=== PATIENT | male | born 1950 ===

== ENCOUNTER 2017-06-01 13:36 | Inpatient (IN) | payer BC, MEDICARE ==
[2017-06-01 13:51] VITALS: BMI 30.5
[2017-06-01 14:32] LABS: BASO # 0.07 K/mm3 (0.0-2.0); BASO % 2.9 % (0.0-3.0); EOS % 1.3 % (1.5-5.0); GRAN # 1.08 (1.4-6.5); GRAN % 45.2 % (50.0-68.0); LYMPH # 0.5 (1.2-3.4); LYMPH % 22.6 % (22.0-35.0); MEAN CELL VOLUME 110.8 fl (80.0-105.0); MEAN CORPUSCULAR HEMOGLOBIN 35.5 pg (25.0-35.0); MEAN CORPUSCULAR HGB CONC 32.1 g/dl (31.0-37.0); MEAN PLATELET VOLUME 9.6 fl (7.0-11.0); MONO # 0.7 (0.1-0.6); PLATELET COUNT 150 10^3/uL (120.0-450.0); RED CELL DISTRIBUTION WIDTH 21.4 % (11.5-14.5)
[2017-06-01 14:39] LABS: RETIC% 24.31 % (0.5-1.5)
[2017-06-01 14:42] LABS: HEMATOCRIT 18.4 % (42.0-52.0); WHITE BLOOD COUNT 2.4 10^3/ul (4.5-11.0)
[2017-06-01 14:45] LABS: INR 1.27 (0.93-1.08); PARTIAL THROMBOPLASTIN TIME 27.2 Seconds (25.1-36.5)
[2017-06-01 14:46] LABS: ALB/GLOB RATIO 1.2 (1.1-1.8); ALKALINE PHOSPHATASE 56 U/L (38-126); ALT/SGPT 33 U/L (7-56); AST/SGOT 42 U/L (17-59); BILIRUBIN,DIRECT 0.8 mg/dL (0.0-0.4); BILIRUBIN,TOTAL 3.8 mg/dL (0.2-1.3); BLOOD UREA NITROGEN 19 mg/dL (7-21); CALCIUM 9.2 mg/dL (8.4-10.5); CARBON DIOXIDE 23 mmol/L (21-33); CHLORIDE 105 mmol/L (98-107); GFR AFRICAN-AMERICAN > 60; GLUCOSE,RANDOM 140 mg/dL (70-110); LIPASE 57 U/L (23-300); POTASSIUM 3.7 mmol/L (3.6-5.0); SODIUM 140 mmol/L (132-148); TOTAL PROTEIN 8.5 g/dL (5.8-8.3)
[2017-06-01 14:56] LABS: TROPONIN I < 0.01 ng/mL
--- NOTE | 2017-06-01 14:58 | ED PDOC ---
Arrival/HPI - General Chief Complaint: Abnormal Labs Time Seen by Provider: 06/01/17 13:42 Historian: Patient, Family (son) - History of Present Illness Narrative History of Present Illness (Text): 06/01/17 14:02 A 66 year old male, whose past medical history includes hypertension, presents to the emergency department after being sent in by Dr. Leach for "low blood count." The patient reports for the last few months he has been feeling weak and short of breath on exertion. He states for the last 4 days he has been feeling worse and nearly passed out 4 days ago. He stated he felt light headed with hot flashes. Today the patient had the same symptoms. He notes when he is relaxed and sitting down he feels perfectly fine. The patient currently complains of shortness of breath of exertion and mild nausea; he denies any headaches, chest pain, abdominal pain, shortness of breath while resting, vomiting, diarrhea, hematuria, dysuria, or any other complaints at this time. PMD: Dr. Leach Time/Duration: < week (worsening over the last 4 days), > month Symptom Course: Worsening Activities at Onset: Other (exertion ) Context: Walking, Exertion, Home Past Medical History - Provider Review Nursing Documentation Reviewed: Yes - Infectious Disease Hx of Infectious Diseases: None - Cardiac Hx Hypertension: Yes - Psychiatric Hx Substance Use: No - Anesthesia Hx Anesthesia: No Family/Social History - Physician Review Nursing Documentation Reviewed: Yes Family/Social History: No Known Family HX Smoking Status: Never Smoked Hx Alcohol Use: No Hx Substance Use: No Allergies/Home Meds Allergies/Adverse Reactions: Allergies No Known Allergies Allergy (Verified 06/01/17 13:50) Home Medications: Home Meds Medication Instructions Recorded Confirmed Ergocalciferol [Drisdol 50,000 1 cap PO Q7D 06/01/17 06/01/17 Intl Units Cap] diltiaZEM CD [Cardizem CD] 1 tab PO DAILY 06/01/17 06/01/17 Review of Systems - Physician Review All systems were reviewed & negative as marked: Yes - Review of Systems Constitutional: Fatigue. absent: Fevers Respiratory: SOB Cardiovascular: COSTA, Other (near syncope). absent: Chest Pain Gastrointestinal: Nausea (mild). absent: Abdominal Pain, Diarrhea, Vomiting Genitourinary Male: absent: Dysuria, Hematuria Neurological: Dizziness Physical Exam Vital Signs Reviewed: Yes Vital Signs Temp Pulse Resp BP Pulse Ox 06/01/17 15:03 86 18 132/69 99 06/01/17 13:56 98.7 F 92 H 18 134/71 99 Temperature: Afebrile Blood Pressure: Normal Pulse: Regular Respiratory Rate: Normal Appearance: Positive for: Well-Appearing, Non-Toxic, Comfortable Pain Distress: None Mental Status: Positive for: Alert and Oriented X 3 - Systems Exam Head: Present: Atraumatic, Normocephalic Pupils: Present: PERRL Conjunctiva: Present: Other (conjunctival pallor) Mouth: Present: Moist Mucous Membranes, Other (oral mucosal pallor) Pharnyx: Present: Normal. No: ERYTHEMA, EXUDATE Neck: Present: Normal Range of Motion Respiratory/Chest: Present: Clear to Auscultation, Good Air Exchange. No: Respiratory Distress, Accessory Muscle Use Cardiovascular: Present: Regular Rate and Rhythm, Normal S1, S2. No: Murmurs Abdomen: Present: Normal Bowel Sounds. No: Tenderness, Distention, Peritoneal Signs Back: Present: Normal Inspection Upper Extremity: Present: Normal Inspection. No: Cyanosis, Edema Lower Extremity: Present: Normal Inspection. No: Edema Neurological: Present: GCS=15, CN II-XII Intact, Speech Normal Skin: Present: Warm, Dry, Normal Color. No: Rashes Psychiatric: Present: Alert, Oriented x 3, Normal Insight, Normal Concentration Medical Decision Making ED Course and Treatment: 06/01/17 14:10 Impression: A 66 year old male with generalized weakness Plan: -- EKG -- Chest X-ray -- Labs -- Urinalysis -- Reassess and disposition Progress Notes: 06/01/17 15:13 Patient with Hgb of 5.9 with low WBC and normal platelet count. Other labs are suggestive of hemolysis. Patient consented for blood transfusion; consent signed. Dr. Leach had already discussed the case with Dr. Parsons for consult. Will start transfusion and admit for further workup and treatment. Case discussed with Dr. Cardenas for admission to his service. - Lab Interpretations Lab Results: 06/01/17 14:06 06/01/17 14:06 Lab Results 06/01/17 14:06: Blood Type Pending, Antibody Screen Pending, BBK History Checked No verified bt 06/01/17 14:06: Iron 211 H, TIBC 293.4, % Saturation 72 H 06/01/17 14:06: PT 13.9 H, INR 1.27 H, APTT 27.2 06/01/17 14:06: Sodium 140, Potassium 3.7, Chloride 105, Carbon Dioxide 23, Anion Gap 16, BUN 19, Creatinine 1.3, Est GFR ( Amer) > 60, Est GFR (Non- Af Amer) 55, Random Glucose 140 H, Calcium 9.2, Magnesium 2.0, Total Bilirubin 3.8 H, Direct Bilirubin 0.8 H, AST 42, ALT 33, Alkaline Phosphatase 56, Lactate Dehydrogenase 1553 H, Total Creatine Kinase 59, Troponin I < 0.01, NT-Pro-B Natriuret Pep 452 H, Total Protein 8.5 H, Albumin 4.6, Globulin 3.8, Albumin/ Globulin Ratio 1.2, Lipase 57, Vitamin B12 Pending, Folate Pending 06/01/17 14:06: WBC 2.4 L*, RBC 1.66 L, Hgb 5.9 L*, Hct 18.4 L*, MCV 110.8 H, MCH 35.5 H, MCHC 32.1, RDW 21.4 H, Plt Count 150, MPV 9.6, Gran % 45.2 L, Lymph % (Auto) 22.6, [place] % (Auto) 28.0 H, Eos % (Auto) 1.3 L, Baso % (Auto) 2.9, Gran # 1.08 L, Lymph # 0.5 L, [place] # 0.7 H, Eos # 0.0, Baso # 0.07, Neutrophils % (Manual) Pending, Lymphocytes % (Manual) Pending, Monocytes % (Manual) Pending , Retic Count 24.31 H* - RAD Interpretation Narrative RAD Interpretations (Text): 06/01/17 15:18 no active disease. Radiology Orders: 06/01/17 13:58 CHEST TWO VIEWS (PA/LAT) [RAD] Stat Editor [employer]: Radiologist - EKG Interpretation EKG Interpretation (Text): 06/01/17 15:19 NSR @ 91; normal intervals; normal axis; less than 1/[address] dep V4-V6. Interpreted by ED Physician: Yes Type: 12 lead EKG Comparison: No previous EKG avail. - Scribe Statement The provider has reviewed the documentation as recorded by the Scribe [employer] Provider Scribe Attestation: All medical record entries made by the Scribe were at my direction and personally dictated by me. I have reviewed the chart and agree that the record accurately reflects my personal performance of the history, physical exam, medical decision making, and the department course for this patient. I have also personally directed, reviewed, and agree with the discharge instructions and disposition. Disposition/Present on Arrival - Present on Arrival Any Indicators Present on Arrival: No History of DVT/PE: No History of Uncontrolled Diabetes: No Urinary Catheter: No History of Decub. Ulcer: No History Surgical Site Infection Following: None - Disposition Have Diagnosis and Disposition been Completed?: Yes Diagnosis: Hemolytic anemia Disposition: HOSPITALIZED Disposition Time: 15:00 Patient Plan: Admission Condition: FAIR Referrals: Dwayne Leach MD [Primary Care Provider] - Follow up with primary Forms: [employer] (Polish)
--- NOTE | 2017-06-01 15:15 | RAD ---
HISTORY: sob; COSTA COMPARISON: No prior. TECHNIQUE: Chest PA and lateral FINDINGS: LUNGS: No active pulmonary disease. PLEURA: No significant pleural effusion identified. No pneumothorax apparent. CARDIOVASCULAR: Normal. OSSEOUS STRUCTURES: No significant abnormalities. VISUALIZED UPPER ABDOMEN: Normal. OTHER FINDINGS: None. IMPRESSION: No active disease.
[2017-06-01 15:18] LABS: BAND 9 % (0-2); EOSINOPHIL 4 % (0.0-3.0); METAMYELOCYTE 3 %; NEUTROPHIL 47 % (50.0-70.0)
[2017-06-01 15:19] LABS: ANISOCYTOSIS 1+; HYPOCHROMIA SLIGHT; MICROCYTOSIS 1+; POIKILOCYTOSIS SLIGHT; POLYCHROMASIA 1+
[2017-06-01 15:20] LABS: LARGE PLATELETS PRESENT; PLATELET ESTIMATE NORMAL (NORMAL)
[2017-06-01 16:37] LABS: URINE BILIRUBIN NEGATIVE (NEGATIVE); URINE BLOOD TRACE-INTACT (NEGATIVE); URINE GLUCOSE (UA) NEGATIVE (NEGATIVE); URINE KETONE NEGATIVE (NEGATIVE); URINE LEUKOCYTE ESTERASE NEGATIVE Leu/uL (NEGATIVE); URINE PROTEIN NEGATIVE mg/dL (<30 mg/dL)
[2017-06-01 16:38] LABS: URINE APPEARANCE CLEAR (CLEAR); URINE COLOR YELLOW (YELLOW)
[2017-06-01 16:45] LABS: URINE BACTERIA FEW (NEG); URINE WBC 0 - 2 /hpf (0-6)
[2017-06-01] MEDS ORDERED: methylPREDNISolone 100 MG in Sodium Chloride 0.9% 100 ML IVPB STA (17:50)
[2017-06-01] MEDS ORDERED: Tuberculin 5 Units/0.1 ml Inj ID PRN (17:56)
[2017-06-01 18:32] LABS: MEAN CELL VOLUME 111.4 fl (80.0-105.0); MEAN CORPUSCULAR HEMOGLOBIN 35.6 pg (25.0-35.0); MEAN CORPUSCULAR HGB CONC 31.9 g/dl (31.0-37.0); MEAN PLATELET VOLUME 9.5 fl (7.0-11.0); RED CELL DISTRIBUTION WIDTH 21.6 % (11.5-14.5)
[2017-06-01 18:42] LABS: WHITE BLOOD COUNT 2.3 10^3/ul (4.5-11.0)
[2017-06-01 18:43] LABS: HEMATOCRIT 16.6 % (42.0-52.0)
[2017-06-01] MEDS: Pantoprazole 40 mg EC Tab PO SCH (18:46)
--- NOTE | 2017-06-01 19:47 | CARD ---
APPROVED REPORT EKG Measurement Heart [id number] <Conclusion> Normal sinus rhythm Possible Inferior infarct, age undetermined Abnormal ECG
[2017-06-01] MEDS ORDERED: Influenza Vaccine 60 mcg/0.5 mL SYR (4YR UP) IM ONE (20:11)
[2017-06-01] MEDS ORDERED: Pneumococcal 23-Valent Vaccine IM ONE (20:11)
[2017-06-02] MEDS: methylPREDNISolone 100 MG in Sodium Chloride 0.9% 100 ML IVPB SCH ×3 (03:19→17:20)
[2017-06-02 07:03] LABS: MEAN CELL VOLUME 110.9 fl (80.0-105.0); MEAN CORPUSCULAR HEMOGLOBIN 35.3 pg (25.0-35.0); MEAN CORPUSCULAR HGB CONC 31.8 g/dl (31.0-37.0); MEAN PLATELET VOLUME 10.1 fl (7.0-11.0); RED CELL DISTRIBUTION WIDTH 22.2 % (11.5-14.5)
[2017-06-02 07:29] LABS: HEMATOCRIT 17.3 % (42.0-52.0); WHITE BLOOD COUNT 2.1 10^3/ul (4.5-11.0)
[2017-06-02 07:55] LABS: ALB/GLOB RATIO 1.3 (1.1-1.8); ALKALINE PHOSPHATASE 57 U/L (38-126); ALT/SGPT 26 U/L (7-56); AST/SGOT 37 U/L (17-59); BILIRUBIN,TOTAL 3.7 mg/dL (0.2-1.3); BLOOD UREA NITROGEN 22 mg/dL (7-21); CARBON DIOXIDE 21 mmol/L (21-33); CHLORIDE 107 mmol/L (98-107); GFR AFRICAN-AMERICAN > 60; GLUCOSE,RANDOM 179 mg/dL (70-110); POTASSIUM 4.5 mmol/L (3.6-5.0); SODIUM 141 mmol/L (132-148); TOTAL PROTEIN 8.3 g/dL (5.8-8.3)
[2017-06-02] MEDS ORDERED: Lidocaine 1% Inj (20ml) INFIL STA (08:09)
[2017-06-02] MEDS: diltiaZEM 300 mg/24 Hours CD Cap PO SCH (10:13)
[2017-06-02] MEDS: Pantoprazole 40 mg EC Tab PO SCH (10:13)
[2017-06-02 12:56] LABS: FOLATE 9.7 ng/mL
[2017-06-02 17:07] LABS: IMMUNOGLOBULIN A 437.9 mg/dL (70.0-400.0); IMMUNOGLOBULIN G 1714.6 mg/dL (700.0-1600.0); IMMUNOGLOBULIN M 168.7 mg/dL (40.0-230.0)
[2017-06-02 18:17] LABS: MEAN CELL VOLUME 104.4 fl (80.0-105.0); MEAN CORPUSCULAR HEMOGLOBIN 33.9 pg (25.0-35.0); MEAN CORPUSCULAR HGB CONC 32.5 g/dl (31.0-37.0); RED CELL DISTRIBUTION WIDTH 23.6 % (11.5-14.5); WHITE BLOOD COUNT 3.3 10^3/ul (4.5-11.0)
[2017-06-02 18:23] LABS: HEMATOCRIT 19.1 % (42.0-52.0)
--- NOTE | 2017-06-03 01:26 | HP ---
HISTORY OF PRESENT ILLNESS: The patient is a 66-year-old, patient of Dr. Leach. States he has not been feeling well since April. He feels very weak, tired, and get short of breath very easily. He thought he is under the weather, did not pay much attention, but lately, his fatigue got worse, so he went to see Dr. Leach,who did basic blood work and was found to have low hemoglobin, so he got a call yesterday to go ahead to emergency room for further evaluation. The patient states he never had this issue before. He recently had colonoscopy done by Dr. Israel and was told colonoscopy is okay. At that point, his blood work was fine. 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 ALLERGIES: HE IS NOT ALLERGIC TO ANY MEDICATION. MEDICATIONS AT HOME: He is on diltiazem 300 mg daily and vitamin D 50,000 q. weekly. SOCIAL HISTORY: He denies smoking, drinking, or alcohol use. REVIEW OF SYSTEMS: Significant for fatigue and getting short of breath on doing minimal chores. PHYSICAL EXAMINATION: GENERAL: He is awake, alert, oriented, and communicative. VITAL SIGNS: He is afebrile, pulse 86, respirations 18, and blood pressure 145/84. LUNGS: Bilateral fair airflow. No rhonchi or crackles. HEART: S1 and S2 audible. ABDOMEN: Soft and nontender. No rebound. No guarding. NEUROLOGIC: The patient is awake, alert, oriented, and communicative. Moves all extremities. LABORATORY DATA: WBC is 2.4, hemoglobin is 5.9, hematocrit is 18.4, and platelets are 150. PT 13.9 and INR 1.27. Chemistry: Sodium 140, potassium 3.7, chloride 105, CO2 of 23, BUN 19, and creatinine 1.3. Blood sugar of 140. LDH is 1553. BNP is 452. Total bilirubin is 3.7. Urine negative for leukocyte. Hepatitis profile is negative. X-ray of chest is unremarkable. EKG, possible inferior infarct, age is undetermined. ASSESSMENT: 1. Symptomatic anemia probably hemolytic, his LDH and total bilirubin is high. 2. Leukopenia. 3. History of hypertension. 4. Exertional dyspnea. PLAN: We will start the patient on diltiazem. He is on Protonix. He has been started on methylprednisolone 100 mg q.8 hours and he will receive two blood transfusions today and he is plan to have bone marrow done tomorrow. Krystyna Donaldson MD
[2017-06-03] MEDS: methylPREDNISolone 100 MG in Sodium Chloride 0.9% 100 ML IVPB SCH ×3 (02:11→17:49)
[2017-06-03 07:18] LABS: MEAN CELL VOLUME 101.8 fl (80.0-105.0); MEAN CORPUSCULAR HEMOGLOBIN 33.8 pg (25.0-35.0); MEAN CORPUSCULAR HGB CONC 33.2 g/dl (31.0-37.0); MEAN PLATELET VOLUME 10.4 fl (7.0-11.0); RED CELL DISTRIBUTION WIDTH 24.8 % (11.5-14.5); WHITE BLOOD COUNT 3.9 10^3/ul (4.5-11.0)
[2017-06-03 07:36] LABS: HEMATOCRIT 22.3 % (42.0-52.0)
--- NOTE | 2017-06-03 08:29 | CON ---
DATE: 06/02/2017 HEMATOLOGY CONSULTATION HISTORY OF PRESENT ILLNESS: This is a 66-year-old man with severe anemia, cigarettes negative, alcohol negative, meth negative. I saw the patient in January 2017 for a platelet count thrombocytopenia and found him to have a clumping of the platelets and no further evaluation. He states that in 03/31/2017, he had a colonoscopy, which was negative, but after the colonoscopy, sometime in mid April, he started feeling run down. He started feeling more shortness of breath when he walk. This progressed until finally he started developing orthostatic changes and he came to the hospital, where he was found to have a hemoglobin of 5.3. PHYSICAL EXAMINATION: SKIN: No petechiae. No bruises. HEENT: Shows some mild icterus, but no mucosal bleeding. NODES: Nonpalpable in axillary, cervical, supraclavicular or inguinal regions. LUNGS: Clear at present. No vertebral tenderness. HEART: S1 and S2. ABDOMEN: Shows no liver, no spleen. No tenderness, no rebound, no ascites. EXTREMITIES: No edema. CENTRAL NERVOUS SYSTEM: No focal findings. LABORATORY DATA: Blood count showed a white count of 2.3 with a hemoglobin of 5.3, hematocrit 16.6, MCV of 111, MCH 35.6, platelet count 140. Furthermore, his white count, the granulocytes were 45%, lymphocytes 22 and monocytes 28%. His peripheral smear shows polychromasia, increased retics, his retic count is 24%, macrocytosis; no abnormal white counts in terms of smudge cells or blasts. The BUN was 22 and sugars have been about 140 to 180. Lying down, he feels fine; it is when he walks, he gets short of breath. IMPRESSION: He has hemolytic anemia monocytes. I ordered steroids, 100 mg Solu-Medrol q.8 hours and he is receiving that. This morning, his hemoglobin may have been somewhat of an improvement in that the hemoglobin went from 5.3 to 5.5, more importantly his RBC number of 1.49 to 1.56. I will see how he does today will have to start with Solu-Medrol. I will see him tomorrow. He knows that I am going to do a bone marrow aspiration biopsy hopefully tomorrow at about 1:00 and he knows to as well. I have ordered hepatitis profile and in preparation for possibly giving gamma globulin and as a possibility, but we want to rule out a lymphoma or chronic leukocytic leukemia here. So for now, he is in bed, he is with oxygen, he has stable vital signs in bed, and we have just started him on steroid treatment while we are waiting for reports to help us to determine the underlying condition. Edgardo Parsons MD
[2017-06-03] MEDS: diltiaZEM 300 mg/24 Hours CD Cap PO SCH (09:30)
[2017-06-03] MEDS: Pantoprazole 40 mg EC Tab PO SCH (09:31)
[2017-06-03] MEDS ORDERED: Lidocaine 1% Inj (20ml) IJ STA (13:37)
--- NOTE | 2017-06-03 15:28 | PN ---
DATE: 06/03/2017 Followup consultation of patient, Silvio Donato, with an acute hemolytic anemia. His hemoglobin was 5.3 on presentation. We started him on steroids and that went up to 5.5 and later on in the afternoon yesterday, came up to 6.2 prior to his transfusion. They were ultimately able to get compatible blood for him and I ordered that he get 2 units of packed cells over the night. We will see what his CBC is for this morning. His MCV also before the transfusion went from 111 down to 104 on the steroids. The IgG was 1700, not very high; the IgM 437, again not very high. Hepatitis screen is negative. B12 is normal. Folate is normal. So, at this point, later this afternoon, I will do a bone marrow aspiration and biopsy and possibly speak with members of family. We will also have the CBC report, but if the hemoglobin is going up and he seems to be feeling better, we may be able to switch him to prednisone 40 mg a day and see him as an outpatient. We will see what the bone marrow shows today, what his blood counts are showing. But, if they are improving, we will be able to switch him to pills. Edgardo Parsons MD
[2017-06-03 18:42] LABS: MEAN CELL VOLUME 101.5 fl (80.0-105.0); MEAN CORPUSCULAR HEMOGLOBIN 34.5 pg (25.0-35.0); MEAN PLATELET VOLUME 9.9 fl (7.0-11.0); RED CELL DISTRIBUTION WIDTH 24.7 % (11.5-14.5); WHITE BLOOD COUNT 4.5 10^3/ul (4.5-11.0)
[2017-06-03 19:19] LABS: HEMATOCRIT 20.6 % (42.0-52.0)
[2017-06-03 19:37] LABS: CYTOMEGALOVIRUS AB (IGM) <30.00 AU/mL
[2017-06-03 19:55] LABS: CYTOMEGALOVIRUS AB (IGG) <0.60 U/mL; TOXOPLASMA IGM AB <8.00 AU/mL
[2017-06-04] MEDS: methylPREDNISolone 100 MG in Sodium Chloride 0.9% 100 ML IVPB SCH ×2 (00:59→11:01)
[2017-06-04 06:07] VITALS: O2SAT 99
[2017-06-04 06:57] LABS: MEAN CELL VOLUME 102.9 fl (80.0-105.0); MEAN CORPUSCULAR HEMOGLOBIN 33.3 pg (25.0-35.0); MEAN CORPUSCULAR HGB CONC 32.4 g/dl (31.0-37.0); MEAN PLATELET VOLUME 10.3 fl (7.0-11.0); RED CELL DISTRIBUTION WIDTH 24.5 % (11.5-14.5); WHITE BLOOD COUNT 3.8 10^3/ul (4.5-11.0)
[2017-06-04 07:02] LABS: HEMATOCRIT 21.3 % (42.0-52.0)
[2017-06-04 08:26] LABS: ALB/GLOB RATIO 1.2 (1.1-1.8); ALKALINE PHOSPHATASE 44 U/L (38-126); ALT/SGPT 30 U/L (7-56); AST/SGOT 42 U/L (17-59); BILIRUBIN,TOTAL 3.2 mg/dL (0.2-1.3); BLOOD UREA NITROGEN 30 mg/dL (7-21); CALCIUM 8.2 mg/dL (8.4-10.5); CARBON DIOXIDE 22 mmol/L (21-33); CHLORIDE 105 mmol/L (98-107); GFR AFRICAN-AMERICAN > 60; GLUCOSE,RANDOM 203 mg/dL (70-110); POTASSIUM 4.5 mmol/L (3.6-5.0); SODIUM 137 mmol/L (132-148); TOTAL PROTEIN 7.2 g/dL (5.8-8.3)
[2017-06-04] MEDS: diltiaZEM 300 mg/24 Hours CD Cap PO SCH (09:54)
[2017-06-04] MEDS: Pantoprazole 40 mg EC Tab PO SCH (09:55)
[2017-06-04 10:11] LABS: EPSTEIN-BARR VCA AB IGM <36.00 U/mL
--- NOTE | 2017-06-04 10:54 | CON ---
FOLLOWUP ONCOLOGY CONSULTATION DATE: 1. The patient is status post bone marrow aspiration biopsy from the right posterior iliac crest, which was performed yesterday afternoon, under sterile conditions with 1% lidocaine for pain and no excessive bleeding. No complication. We will see what the results are over the next couple of days, next week. 2. The patient is status post 2 units of packed cells, we have to get that for him, and he is on the steroids. His RBC numbers gone up from 1.83 to 2.07. His hemoglobin 6.2 up to 6.9 and his hematocrit 19 to 21 with his MCV going down to 104 to 103. Symptomatically, he is markedly improved. He says he has much less shortness of breath and he has much more energy. This may be while still on the steroids, but his hemoglobin is coming up. At this point, the labs will come back next week and I gave him a prescription today for prednisone 40 mg p.o. twice a day with the Prilosec 40 mg p.o. once a day. I will see him in the office on Wednesday to recheck the CBC and to reevaluate other medications including gamma globulin as an outpatient, but for now the patient is symptomatically improved. I told to him and the son that he cannot go back to work that he has to stay in his home over the weekend till he sees me on Wednesday, where I can repeat CBC, but there seems to be improvement here. Edgardo Parsons MD
[2017-06-04 11:48] VITALS: BP 143/91; PULSE 67; RESP 16; TEMP 98
--- NOTE | 2017-06-04 22:01 | PN ---
DATE: 06/04/2017 This is a late entry for 06/03/2017. I had technical problems with getting into [employer] by reaching the patient. SUBJECTIVE: The patient has no complaints of any chest pain. No shortness of breath. No headache. No dizziness. PHYSICAL EXAMINATION: VITAL SIGNS: Temperature is 98.5, pulse of 86, blood pressure is 129/72, and respirations are 20. GENERAL: The patient is lying in bed, flat, comfortable. HEENT: No oral lesion. Anicteric sclerae. Moist mucosa. NECK: No JVD, adenopathy, or thyromegaly. CARDIOVASCULAR: S1 and S2, regular. No murmurs, rubs, or gallops. LUNGS: Clear to auscultation bilaterally. No wheeze, rales, or rhonchi. ABDOMEN: Bowel sounds are positive, soft, nontender and nondistended. EXTREMITIES: No cyanosis, clubbing or edema. ASSESSMENT: 1. Acute anemia secondary to hemolysis. 2. Thrombocytopenia. 3. Hypertension. PLAN: The patient is going to get bone marrow done by Dr. Parsons. He did get transfusion of packed red blood cells. He has full serological workup that was ordered by Dr. Parsons. He is currently comfortable. I did speak to the patient's son at the bedside to give him an update on the patient's diagnosis and plan of care. If he feels well tomorrow and does not have any issues of bleeding, the patient will most likely be discharged home. Jerry Cardenas MD
--- NOTE | 2017-06-05 03:04 | DS ---
HISTORY OF PRESENT ILLNESS: This is a 66-year-old male who is coming into the hospital because of severe anemia as well as thrombocytopenia. The patient had difficulty to match blood and eventually the patient was matched and given a transfusion. He was seen by Dr. Parsons from Hematology. He had a bone marrow done yesterday and he is going to be discharged home today. The patient has acute hemolytic anemia and had a hemoglobin of 5.3 on initial presentation. He is comfortable. He has no complaints of any chest pain or shortness of breath. He is going to be discharged home today and follow up as an outpatient. PHYSICAL EXAMINATION: VITAL SIGNS: Temperature is 98, pulse is 67, blood pressure is 143/91, and respirations are 16. GENERAL: The patient is lying in bed, flat, comfortable. HEENT: No oral lesion. Anicteric sclerae. Moist mucosa. NECK: No JVD, adenopathy, or thyromegaly. CARDIOVASCULAR: S1 and S2, regular. No murmurs, rubs, or gallops. LUNGS: Clear to auscultation bilaterally. No wheeze, rales, or rhonchi. ABDOMEN: Bowel sounds are positive, soft, nontender and nondistended. EXTREMITIES: No cyanosis, clubbing or edema. ASSESSMENT: 1. Acute anemia secondary to acute hemolysis. 2. Thrombocytopenia. 3. Hypertension. 4. Leukopenia. 5. Shortness of breath secondary to anemia. PLAN: The patient has a hemoglobin of 6.9 and he was okay to be discharged. He had hepatitis B and C that was negative. His [place] IgM is low as well as CMP is low. He had chemistry that showed creatinine that was 1.1. He is going to be discharged home today to follow as an outpatient. CONDITION: Stable. ACTIVITIES: Increase as tolerated. Jerry Cardenas MD
--- NOTE | 2017-06-07 08:26 | PQF GENQUE ---
This form is a permanent part of the medical record Dr. Parsons, Clarification of your documentation is requested to better reflect the severity of illness and intensity of treatment of your patient. Indicators present: Please see the result of the external pathology report in the EMR. 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 Thank you. [] Specify: [] [] Specify: [] [] Specify: [] [] Specify: [] Location in the medical record that reflects the above clinical findings: [] external pathology report (EMR) Treatment Provided: [] PHYSICIAN'S RESPONSE Based on your medical judgment of the clinical indicators outlined above please clarify the following: [] Practitioner response [] If unable to determine, please check the box, sign and date. Present On Admission (POA) Indicator: [] Present at the time of admission [] Not present at the time of admission [] Clinically Undetermined In responding to this query, please exercise your independent professional judgment. The fact that a question is asked does not imply that any particular answer is desired or expected. Thank you for your clarification on this documentation. If you have any questions please call:[ ] * Thank you, [ ]anant JEFFREYevent attendant JERROD
--- NOTE | 2017-06-09 11:15 | PQF GENQUE ---
This form is a permanent part of the medical record Dr. Cardenas, Dr. Parsons did a bone marrow bx and we just got the report back says "B-cell lymphoma" via external pathology report. If you agree with result please document below the physician's response. Would you say is this POA? Thank you. 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 Indicators present [] Specify: [] [] Specify: [] [] Specify: [] [] Specify: [] Location in the medical record that reflects the above clinical findings: [] Treatment Provided: [] PHYSICIAN'S RESPONSE Based on your medical judgment of the clinical indicators outlined above please clarify the following: [] Practitioner response [] If unable to determine, please check the box, sign and date. Present On Admission (POA) Indicator: [x] Present at the time of admission [] Not present at the time of admission [] Clinically Undetermined In responding to this query, please exercise your independent professional judgment. The fact that a question is asked does not imply that any particular answer is desired or expected. Thank you for your clarification on this documentation. If you have any questions please call:[ ] * Thank you, [ ]CHANDLER JEFFREYphysically impaired teacher JERROD
== END 2017-06-04 13:17 | disposition home or self-care (01) | DRG 841 ==
LOC: ED 13:36 → ERH 15:10 → 5RSO 16:30 → 2RSO 06-02 13:40
PROVIDERS: ADMIT Internal Medicine Nephrology; ATTEND Internal Medicine Nephrology
PROC: 30233N1 Transfusion of Nonautologous Red Blood Cells into Peripheral Vein, Percutaneous Approach (ICD-10-PCS; 2017-06-02)
PROC: 07DR3ZX Extraction of Iliac Bone Marrow, Percutaneous Approach, Diagnostic (ICD-10-PCS; principal; 2017-06-03)
DX: C85.10 Unspecified B-cell lymphoma, unspecified site (principal); D59.9 Acquired hemolytic anemia, unspecified; D69.6 Thrombocytopenia, unspecified; I10 Essential (primary) hypertension; D72.819 Decreased white blood cell count, unspecified

== ENCOUNTER 2018-03-22 17:31 | Emergency (ER) | payer BC ==
[2018-03-22 17:31] VITALS: BMI 30.5
[2018-03-22 18:03] VITALS: RESP 18; TEMP 98.6
--- NOTE | 2018-03-22 18:10 | ED PDOC ---
Arrival/HPI - General Historian: Patient - History of Present Illness Time/Duration: 4-6 hours Symptom Onset: Sudden Symptom Course: Worsening Quality: Other (no pain) - General Chief Complaint: Abnormal Skin Integrity Time Seen by Provider: 03/22/18 17:59 - History of Present Illness Narrative History of Present Illness (Text): 03/22/18 18:02 Patient is a 67 year old male with a past medical history of hypertension presents to the emergency room with a complaint of a rash. He first noticed a rash on his arms yesterday in the afternoon but it soon disappeared without him doing anything. He noticed this afternoon that the rash started to return, but this time was much more diffuse. The rash was located on his arms, chest, back and feet, but not on his face, legs or genital region. The rash was raised of the skin but was not any different color from his skin, no redness. There is no pain, no itch and no burning associated with the rash. He decided to rub alcohol on the rash this afternoon in an attempt to kill any bacteria. He decided to stop after noticing his skin starting turning red. He has no other complaints, denies fevers, chills, nausea, vomiting, diarrhea, constipation, chest pain, shortness of breath, wheezing, difficulty swallowing, vision changes , numbness or tingling. Seasonal allergies only (DeanFinesse) Past Medical History - Provider Review Nursing Documentation Reviewed: Yes - Infectious Disease Hx of Infectious Diseases: None - Cardiac Hx Hypertension: Yes - HEENT Hx HEENT Disorder: Yes (eyeglasses) - Musculoskeletal/Rheumatological Hx Falls: No - Psychiatric Hx Substance Use: No - Anesthesia Hx Anesthesia: No Family/Social History - Physician Review Nursing Documentation Reviewed: Yes Family/Social History: Unknown Family HX Smoking Status: Never Smoked Hx Alcohol Use: No Hx Substance Use: No Allergies/Home Meds Allergies/Adverse Reactions: Allergies No Known Allergies Allergy (Verified 03/22/18 17:40) Home Medications: Home Meds Medication Instructions Recorded Confirmed diltiaZEM CD [Cardizem CD] 300 mg PO DAILY 06/01/17 03/22/18 Review of Systems - Physician Review All systems were reviewed & negative as marked: Yes - Review of Systems Constitutional: Normal. absent: Fatigue, Fevers Eyes: Normal. absent: Vision Changes ENT: Normal. absent: Sore Throat, Rhinorrhea Respiratory: Normal. absent: SOB, Cough, Wheezing Cardiovascular: Normal. absent: Chest Pain, Palpitations, Syncope Gastrointestinal: Normal. absent: Abdominal Pain, Constipation, Diarrhea, Nausea, Vomiting Musculoskeletal: Normal. absent: Back Pain, Neck Pain Skin: Rash. absent: Pruritis, Abscess, Ulcer, Cellulitis Neurological: Normal. absent: Headache, Dizziness Endocrine: Normal. absent: Diaphoresis Hemo/Lymphatic: Normal Psychiatric: Normal. absent: Anxiety Physical Exam Vital Signs Reviewed: Yes Temperature: Afebrile Blood Pressure: Hypertensive Pulse: Regular Respiratory Rate: Normal Appearance: Positive for: Well-Appearing, Non-Toxic, Comfortable Pain Distress: None Mental Status: Positive for: Alert and Oriented X 3 - Systems Exam Head: Present: Atraumatic, Normocephalic Extroacular Muscles: Present: EOMI Conjunctiva: Present: Normal Mouth: Present: Moist Mucous Membranes Nose (External): Present: Atraumatic Nose (Internal): Present: No Active Bleeding Neck: Present: Normal Range of Motion Respiratory/Chest: Present: Clear to Auscultation, Good Air Exchange. No: Respiratory Distress, Accessory Muscle Use, Wheezes, Rales, Retracting, Rhonchi , Tachypneic Cardiovascular: Present: Regular Rate and Rhythm, Normal S1, S2. No: Murmurs, Tachycardic Abdomen: No: Tenderness, Distention, Peritoneal Signs Back: Present: Other (see skin exam) Upper Extremity: Present: Normal ROM, NORMAL PULSES, Other (see skin exam). No : Cyanosis, Edema, Tenderness, Swelling Lower Extremity: Present: NORMAL PULSES, Other (see skin exam). No: Edema, CALF TENDERNESS, Tenderness, Swelling Neurological: Present: GCS=15, Speech Normal, Motor Func Grossly Intact Skin: Present: Warm, Dry, Rashes (Urticaria - on chest wrapping around to back, on arms b/l and tops of feet b/l. No surrounding cellulitis, mild erythema ( most likely 2/2 to patient rubbing alcohol on hives), non-tender). No: Diaphoretic Psychiatric: Present: Alert, Oriented x 3, Normal Insight, Normal Concentration Vital Signs Temp Pulse Resp BP Pulse Ox 03/22/18 17:37 98.6 F 62 18 180/90 H 96 Medical Decision Making ED Course and Treatment: 03/22/18 18:19 Patient is a 67 year old male with past medical history including hypertension presenting with urticria on chest, back, arms b/l and feet b/l. Patient's physical exam is otherwise unremarkable, no wheezing, strider or shortness of breath. Benadryl 50mg PO given Will re-assess 03/22/18 18:23 Patient is requesting to be discharged home. Discussed with patient he can be discharged home but he is to return to the emergency room immediately if he starts to notice new or worsening symptoms, including but not limited to wheezing, strider, shortness of breath, chest pain or worsening rash. This was told to both patient and his son at bedside. Both state they understand and agree. Will discharge home with a prescription for Benadryl. (Dean,Finesse) 03/22/18 18:23 67 yo male presents with uticarial rash. Agree with resident history and physical assessment and plan. Patient does not have cp or sob. No throat closing sensation. He did not try any meds for rash at home. He thinks maybe it was tomatoes that caused this but he's not sure. He will check to see if he's used any new soaps or detergents. Rash is scattered uticaria on back chest, arms and feet. Treated with bendryl. Patient requested to go home and he will monitor rash and return to the ED with any worsening symptoms or concerns. (Carmelo Uribe) - Medication Orders Current Medication Orders: Discontinued Medications Diphenhydramine HCl (Benadryl) 50 mg PO STAT STA Stop: 03/22/18 18:00 Last Admin: 03/22/18 18:16 Dose: 50 mg Disposition/Present on Arrival - Present on Arrival Any Indicators Present on Arrival: No History of DVT/PE: No History of Uncontrolled Diabetes: No Urinary Catheter: No History of Decub. Ulcer: No History Surgical Site Infection Following: None - Disposition Have Diagnosis and Disposition been Completed?: Yes Disposition Time: 18:26 Patient Plan: Discharge - Disposition Diagnosis: Urticaria Disposition: HOME/ ROUTINE Condition: GOOD Discharge Instructions (ExitCare): Dea (EDUARDO) Additional Instructions: JOVANNY DURAND, thank you for letting us take care of you today. Your provider was Carmelo Uribe DO and you were treated for an allergic reaction rash. The emergency medical care you received today was directed at your acute symptoms. If you were prescribed any medication, please fill it and take as directed. It may take several days for your symptoms to resolve. Patient is to return to the emergency room immediately if he starts to notice new or worsening symptoms, including but not limited to wheezing, strider, shortness of breath, chest pain or worsening rash. Please contact your doctor or call one of the physicians/clinics you have been referred to that are listed on the Patient Visit Information form that is included in your discharge packet. Bring any paperwork you were given at discharge with you along with any medications you are taking to your follow up visit. Our treatment cannot replace ongoing medical care by a primary care provider outside of the emergency department. Thank you for allowing the [facility] team to be part of your care today. If you had an X-Ray or CT scan: A Radiologist will review the ED reading if any change in treatment is needed we will contact you. If you had a blood, urine, or wound culture: It will take several days for the results, if any change in treatment is needed we will contact you. If you had an STI test: It will take 48 hours for the results. Please call after 1 week if you have not heard back. Prescriptions: DiphenhydrAMINE [Benadryl] 50 mg PO Q6H PRN #20 cap PRN Reason: Rash Forms: Breaker (Macedonian)
[2018-03-22 20:44] VITALS: BP 156/79; PULSE 78; O2SAT 99
== END 2018-03-22 18:45 | disposition home or self-care (01) ==
LOC: ED 17:31
DX: L50.9 Urticaria, unspecified (principal)

== ENCOUNTER 2018-04-15 04:08 | Inpatient (IN) | payer BC, MEDICARE ==
[2018-04-15] MEDS ORDERED: Collagen Hemostat Powder MM ONE (04:27)
--- NOTE | 2018-04-15 04:31 | ED PDOC ---
Arrival/HPI - General Chief Complaint: ENT Problem Time Seen by Provider: 04/15/18 04:16 Historian: Patient - Critical Care Critical Care Minutes: 45 minutes - History of Present Illness Narrative History of Present Illness (Text): 04/15/18 04:28 67 year old male, whose past medical history includes hypertension, presents to the emergency department with bleeding gums, for 3 days. Patient states he went to his dentist 3 days ago for a cleaning, Patient states they have been bleeding ever since. Patient denies any fevers, chills, headache, or any other complaint. 04/15/18 06:21 Time/Duration: < week (3 days) Symptom Course: Unchanged Context: Home Past Medical History - Provider Review Nursing Documentation Reviewed: Yes - Infectious Disease Hx of Infectious Diseases: None - Cardiac Hx Hypertension: Yes - HEENT Hx HEENT Disorder: Yes (eyeglasses) - Musculoskeletal/Rheumatological Hx Falls: No - Psychiatric Hx Substance Use: No - Anesthesia Hx Anesthesia: No Family/Social History - Physician Review Nursing Documentation Reviewed: Yes Family/Social History: No Known Family HX Smoking Status: Never Smoked Hx Alcohol Use: No Hx Substance Use: No Allergies/Home Meds Allergies/Adverse Reactions: Allergies No Known Allergies Allergy (Verified 04/15/18 04:28) Home Medications: Home Meds Medication Instructions Recorded Confirmed diltiaZEM CD [Cardizem CD] 300 mg PO DAILY 06/01/17 03/22/18 Review of Systems - Physician Review All systems were reviewed & negative as marked: Yes - Review of Systems Constitutional: absent: Fevers, Night Sweats ENT: Other (bleeding from gums) Neurological: absent: Headache Physical Exam Vital Signs Reviewed: Yes Vital Signs Temp Pulse Resp BP Pulse Ox 04/15/18 04:25 98.3 F 78 20 150/107 H 100 Temperature: Afebrile Blood Pressure: Hypertensive Pulse: Regular Respiratory Rate: Normal Appearance: Positive for: Well-Appearing, Non-Toxic, Comfortable Pain Distress: None Mental Status: Positive for: Alert and Oriented X 3 - Systems Exam Head: Present: Atraumatic, Normocephalic Pupils: Present: PERRL Extroacular Muscles: Present: EOMI Conjunctiva: Present: Normal Mouth: Present: Moist Mucous Membranes, Other Neck: Present: Normal Range of Motion Respiratory/Chest: Present: Clear to Auscultation, Good Air Exchange. No: Respiratory Distress, Accessory Muscle Use Cardiovascular: Present: Regular Rate and Rhythm, Normal S1, S2. No: Murmurs Abdomen: No: Tenderness, Distention, Peritoneal Signs Back: Present: Normal Inspection Upper Extremity: Present: Normal Inspection. No: Cyanosis, Edema Lower Extremity: Present: Normal Inspection. No: Edema Neurological: Present: GCS=15, CN II-XII Intact, Speech Normal Skin: Present: Rashes (petechial rash to leg) Psychiatric: Present: Alert, Oriented x 3, Normal Insight, Normal Concentration Medical Decision Making ED Course and Treatment: 04/15/18 04:32 Impression: 67 year old male presents with bleeding gums, also petichial rash on exam suspect thrombocytopenia Plan: -- Labs -- Avitene -- Reassess and disposition Prior Visits: Notes and results from previous visits were reviewed. Progress Notes: 04/15/18 05:39 Dr. Parsons has been paged, pending call back. 04/15/18 06:21 methylprednisone ordered , icu requests 2 unit plt pt consented - Medication Orders Current Medication Orders: Collagen (Avitene) 1 pow MM ONCE ONE Stop: 04/15/18 04:28 - Scribe Statement The provider has reviewed the documentation as recorded by the Mady Florez Provider Scribe Attestation: All medical record entries made by the Natanibe were at my direction and personally dictated by me. I have reviewed the chart and agree that the record accurately reflects my personal performance of the history, physical exam, medical decision making, and the department course for this patient. I have also personally directed, reviewed, and agree with the discharge instructions and disposition. Disposition/Present on Arrival - Present on Arrival Any Indicators Present on Arrival: No History of DVT/PE: No History of Uncontrolled Diabetes: No Urinary Catheter: No History of Decub. Ulcer: No History Surgical Site Infection Following: None - Disposition Have Diagnosis and Disposition been Completed?: Yes Diagnosis: Thrombocytopenia Disposition: HOSPITALIZED Disposition Time: 06:22 Condition: CRITICAL
[2018-04-15 05:13] LABS: BASO # 0.05 K/mm3 (0.0-2.0); BASO % 2.1 % (0.0-3.0); EOS % 1.7 % (1.5-5.0); GRAN # 1.42 (1.4-6.5); GRAN % 59.6 % (50.0-68.0); HEMOGLOBIN 9.2 g/dL (14.0-18.0); LYMPH # 0.4 (1.2-3.4); LYMPH % 18.5 % (22.0-35.0); MEAN CELL VOLUME 93.5 fl (80.0-105.0); MEAN CORPUSCULAR HEMOGLOBIN 29.8 pg (25.0-35.0); MEAN CORPUSCULAR HGB CONC 31.8 g/dl (31.0-37.0); MONO # 0.4 (0.1-0.6); MONO % 18.1 % (1.0-6.0); RBC 3.09 10^6/uL (3.5-6.1); RED CELL DISTRIBUTION WIDTH 18.7 % (11.5-14.5)
[2018-04-15 05:16] LABS: INR 1.12; PARTIAL THROMBOPLASTIN TIME 30.1 Seconds (25.1-36.5); PROTHROMBIN TIME 12.9 SECONDS (9.4-12.5)
[2018-04-15 05:20] LABS: PLATELET COUNT 1 10^3/uL (120.0-450.0)
[2018-04-15 05:21] LABS: WHITE BLOOD COUNT 2.4 10^3/ul (4.5-11.0)
[2018-04-15 05:23] LABS: ALB/GLOB RATIO 1.2 (1.1-1.8); ALBUMIN 4.3 g/dL (3.0-4.8); ALT/SGPT 20 U/L (7-56); AST/SGOT 18 U/L (17-59); BLOOD UREA NITROGEN 16 mg/dL (7-21); CALCIUM 8.8 mg/dL (8.4-10.5); GFR NON-AFRICAN AMERICAN 50
--- NOTE | 2018-04-15 05:43 | CP.PCM.CON ---
<TaylorArnulfo - Last Filed: 04/15/18 08:49> History of Present Illness - History of Present Illness History of Present Illness: ICU Consultation (Dr. Phipps): Yvette PGY2 CC: Thrombocytopenia HPI: Mr. Donato is a 67 year old male with a past medical history significant for HTN and Vitamin D deficiency who presented with gum bleeding for three days. Patient reports he was seen at his dentist three days ago for a regular cleaning and was told that his gums were "inflamed". During this appointment, his dentist cut his gums and he has had gingival bleeding since that time. When patient awoke this morning for work, his bleeding still hadn't resolved and he decided that he needed further evaluation. He denies ever having this issue in the past. He also endorses a non-itchy and non-painful rash on his bilateral lower extremities that started several days ago. 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 At that time a bone marrow biopsy was done that he was told was "normal". He does note that he was started on Prednisone and stopped after a few weeks. Currently he denies any recent travel, sick contacts, fevers, chills, headache, changes in his vision, neck pain/stiffness, chest pain, palpitations, SOB, cough, wheezing, hemoptysis, abdominal pain, N/V/D/C, melena, hematochezia, hematemesis, changes in urine output, hematuria, joint pain, bleeding joints, or any numbness/tingling/weakness of any extremity. 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 Leach Review of Systems - Review of Systems Review of Systems: As stated in the HPI, otherwise negative Past Patient History - Infectious Disease Hx of Infectious Diseases: None - Past Social History Smoking Status: Never Smoked - CARDIAC Hx Hypertension: Yes - HEENT Hx HEENT Problems: Yes (eyeglasses) - MUSCULOSKELETAL/RHEUMATOLOGICAL Hx Falls: No - PSYCHIATRIC Hx Substance Use: No - SURGICAL HISTORY Hx Surgeries: No - ANESTHESIA Hx Anesthesia: No Meds Allergies/Adverse Reactions: Allergies Allergy/AdvReac Type Severity Reaction Status Date / Time No Known Allergies Allergy Verified 04/15/18 04:28 Physical Exam - Constitutional Appears: Non-toxic, No Acute Distress - Head Exam Head Exam: ATRAUMATIC, NORMOCEPHALIC - Eye Exam Eye Exam: EOMI, Normal appearance, PERRL. absent: Conjunctival injection, Nystagmus, Periorbital swelling, Periorbital tenderness, Scleral icterus Pupil Exam: NORMAL ACCOMODATION, PERRL - ENT Exam Additional comments: Gingival hemorrhage on upper and lower gingiva - Neck Exam Neck exam: Positive for: Full Rom, Normal Inspection. Negative for: Lymphadenopathy, Meningismus, Tenderness, Thyromegaly - Respiratory Exam Respiratory Exam: Clear to Auscultation Bilateral, NORMAL BREATHING PATTERN. absent: Accessory Muscle Use, Chest Wall Tenderness, Decreased Breath Sounds, Prolonged Expiratory Phase, Rales, Rhonchi, Wheezes, Respiratory Distress, Stridor - Cardiovascular Exam Cardiovascular Exam: REGULAR RHYTHM, RRR, +S1, +S2. absent: Bradycardia, Tachycardia, Clicks, Diastolic murmur, Gallop, Irregular Rhythm, JVD, Rubs, +S4, Systolic Murmur - GI/Abdominal Exam GI & Abdominal Exam: Normal Bowel Sounds, Soft. absent: Bruit, Diminished Bowel Sounds, Distended, Firm, Guarding, Hernia, Hyperactive Bowel Sounds, Hypoactive Bowel Sounds, Mass, Organomegaly, Pulsatile Mass, Rebound, Rigid, Tenderness - Extremities Exam Extremities exam: Positive for: full ROM, normal capillary refill, pedal pulses present. Negative for: calf tenderness, joint swelling, pedal edema, tenderness Additional comments: petechial rash on bilateral lower extremities extending to the mid calves - Back Exam Back exam: FULL ROM, NORMAL INSPECTION. absent: CVA tenderness (L), CVA tenderness (R), muscle spasm, paraspinal tenderness, rash noted, tenderness, vertebral tenderness - Neurological Exam Neurological exam: Alert, CN II-XII Intact, Normal Gait, Oriented x3 - Psychiatric Exam Psychiatric exam: Normal Affect, Normal Mood - Skin Skin Exam: Dry, Intact, Warm Results - Vital Signs Recent Vital Signs: Last Vital Signs Temp 98.3 F 04/15/18 04:25 Pulse 78 04/15/18 04:25 Resp 20 04/15/18 04:25 BP 150/107 H 04/15/18 04:25 Pulse Ox 100 04/15/18 04:25 - Labs Result Diagrams: 04/15/18 04:40 04/15/18 04:40 Labs: Laboratory Results - last 24 hr 04/15/18 04/15/18 04/15/18 04:40 04:40 04:40 WBC 2.4 L* D RBC 3.09 L Hgb 9.2 L D Hct 28.9 L MCV 93.5 D MCH 29.8 MCHC 31.8 RDW 18.7 H Plt Count 1 L* Gran % 59.6 Lymph % (Auto) 18.5 L Dooly % (Auto) 18.1 H Eos % (Auto) 1.7 Baso % (Auto) 2.1 Gran # 1.42 Lymph # (Auto) 0.4 L Dooly # (Auto) 0.4 Eos # (Auto) 0.0 Baso # (Auto) 0.05 PT 12.9 H INR 1.12 APTT 30.1 Sodium 139 Potassium 3.9 Chloride 105 Carbon Dioxide 23 Anion Gap 14 BUN 16 Creatinine 1.4 Est GFR ( Amer) > 60 Est GFR (Non-Af Amer) 50 Random Glucose 126 H Calcium 8.8 Total Bilirubin 0.8 AST 18 ALT 20 Alkaline Phosphatase 65 Total Protein 8.0 Albumin 4.3 Globulin 3.7 Albumin/Globulin Ratio 1.2 Assessment & Plan - Assessment and Plan (Free Text) Assessment: 67 year old male with a past medical history significant for B-cell lymphoma, HTN and Vitamin D deficiency who presented with gum bleeding for three days. He was found to have a thrombocytopenia of one on a CBC in the ED. Plan: 1. Thrombocytopenia -Daily CBC's -Peripheral Smear and Manual Platelet Count pending -125mg Methylprednisolone given in ED -Hematology consulted, all recommendations appreciated 2. History of HTN -Continue home Cardizem DVT Prophylaxis: SCD's Diet: NPO Except Medications Patient seen and case discussed with attending, Dr. Phipps. - Date & Time Date: 04/15/18 Time: 05:43 <Kate Phipps - Last Filed: 04/17/18 06:14> Results - Vital Signs Recent Vital Signs: Last Vital Signs Temp 98.4 F 04/16/18 17:17 Pulse 72 04/16/18 17:17 Resp 19 04/16/18 17:17 BP 153/77 H 04/16/18 17:17 Pulse Ox 99 04/16/18 17:17 - Labs Result Diagrams: 04/16/18 12:00 04/16/18 04:15 Labs: Laboratory Results - last 24 hr 04/16/18 04/16/18 08:25 12:00 WBC 3.4 L 3.4 L RBC 2.74 L 2.74 L Hgb 8.2 L 8.2 L Hct 25.4 L 25.4 L MCV 92.7 92.7 MCH 29.9 29.9 MCHC 32.3 32.3 RDW 18.3 H 18.3 H Plt Count 6 L* 6 L* Gran % 85.2 H 85.2 H Lymph % (Auto) 8.3 L 8.3 L Dooly % (Auto) 6.5 H 6.5 H Eos % (Auto) 0.0 L 0.0 L Baso % (Auto) 0.0 0.0 Gran # 2.86 2.86 Lymph # (Auto) 0.3 L 0.3 L Dooly # (Auto) 0.2 0.2 Eos # (Auto) 0.0 0.0 Baso # (Auto) 0.00 0.00 Platelet Evaluation 8 8 Attending/Attestation - Attestation I have personally seen and examined this patient.: Yes I have fully participated in the care of the patient.: Yes I have reviewed all pertinent clinical information: Yes
--- NOTE | 2018-04-15 06:32 | CP.PCM.HP ---
<ReeAlyse - Last Filed: 04/15/18 09:18> History of Present Illness - History of Present Illness History of Present Illness: H&P for Reyes Zhang PGY3 This is a 67yo male with past medical history of HTN, CLL, microangiopathic hemolytic anemia who came to ED for bleeding gums. Patient reports he had a routine teeth cleaning 3 days ago by his dentist. Since then his gums won't stop bleeding. Patient denies chest pain, shortness of breath, recent travel, nausea/vomiting/diarrhea, dark color or blood in stools, numbness/tingling, fever/chills or change in medication. Patient was found to have CLL with secondary microangiopathic hemolytic anemia last year. He had BM biopsy in 2017 which showed hypercellular bone marrow, but no evidence of lymphoma. Past medical history: HTN, CLL, microangiopathic hemolytic anemia Past surgical history: Denies Home meds: Reviewed as per MAR Allergies: NKDA Social history: Denies EtOH, drug or tobacco use. 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 Lives with family Family history: Both parents of "old age". Denies any bleeding disorders or cancers in family Present on Admission - Present on Admission Any Indicators Present on Admission: No Review of Systems - Review of Systems All systems: reviewed and no additional remarkable complaints except Review of Systems: 12 point ROS reviewed as per HPI and is otherwise negative. Past Patient History - Infectious Disease Hx of Infectious Diseases: None - Past Social History Smoking Status: Never Smoked - CARDIAC Hx Hypertension: Yes - HEENT Hx HEENT Problems: Yes (eyeglasses) - MUSCULOSKELETAL/RHEUMATOLOGICAL Hx Falls: No - PSYCHIATRIC Hx Substance Use: No - SURGICAL HISTORY Hx Surgeries: No - ANESTHESIA Hx Anesthesia: No Meds Allergies/Adverse Reactions: Allergies Allergy/AdvReac Type Severity Reaction Status Date / Time No Known Allergies Allergy Verified 04/15/18 04:28 Physical Exam - Constitutional Appears: No Acute Distress - Head Exam Head Exam: ATRAUMATIC, NORMAL INSPECTION, NORMOCEPHALIC - Eye Exam Eye Exam: Normal appearance, PERRL Pupil Exam: NORMAL ACCOMODATION, PERRL - ENT Exam ENT Exam: Mucous Membranes Moist. absent: Normal Exam Additional comments: Bleeding gums - Neck Exam Neck exam: Positive for: Full Rom, Normal Inspection. Negative for: Lymphadenopathy, Tenderness - Respiratory Exam Respiratory Exam: Clear to Auscultation Bilateral, NORMAL BREATHING PATTERN. absent: Rales, Rhonchi, Wheezes - Cardiovascular Exam Cardiovascular Exam: REGULAR RHYTHM, +S1, +S2. absent: Gallop, Rubs, Systolic Murmur - GI/Abdominal Exam GI & Abdominal Exam: Normal Bowel Sounds, Soft. absent: Mass, Organomegaly, Salud ound, Rigid, Tenderness - Extremities Exam Extremities exam: Positive for: normal capillary refill, normal inspection, pedal pulses present. Negative for: calf tenderness, pedal edema - Neurological Exam Neurological exam: Alert, CN II-XII Intact, Oriented x3 - Psychiatric Exam Psychiatric exam: Normal Affect, Normal Mood - Skin Skin Exam: Dry, Normal Color, Petechiae (on LE bilaterally ), Warm Results - Vital Signs Recent Vital Signs: Last Vital Signs Temp 98.3 F 04/15/18 04:25 Pulse 78 04/15/18 04:25 Resp 20 04/15/18 04:25 BP 150/107 H 04/15/18 04:25 Pulse Ox 100 04/15/18 04:25 - Labs Result Diagrams: 04/15/18 04:40 04/15/18 04:40 Labs: Laboratory Results - last 24 hr 04/15/18 04/15/18 04/15/18 04:40 04:40 04:40 WBC 2.4 L* D RBC 3.09 L Hgb 9.2 L D Hct 28.9 L MCV 93.5 D MCH 29.8 MCHC 31.8 RDW 18.7 H Plt Count 1 L* Gran % 59.6 Lymph % (Auto) 18.5 L Henderson % (Auto) 18.1 H Eos % (Auto) 1.7 Baso % (Auto) 2.1 Gran # 1.42 Lymph # (Auto) 0.4 L Henderson # (Auto) 0.4 Eos # (Auto) 0.0 Baso # (Auto) 0.05 PT 12.9 H INR 1.12 APTT 30.1 Sodium 139 Potassium 3.9 Chloride 105 Carbon Dioxide 23 Anion Gap 14 BUN 16 Creatinine 1.4 Est GFR ( Amer) > 60 Est GFR (Non-Af Amer) 50 Random Glucose 126 H Calcium 8.8 Total Bilirubin 0.8 AST 18 ALT 20 Alkaline Phosphatase 65 Total Protein 8.0 Albumin 4.3 Globulin 3.7 Albumin/Globulin Ratio 1.2 Assessment & Plan - Assessment and Plan (Free Text) Assessment: 1. 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 CLL - had tx of steroids and Rituxin a couple months ago 3. Microangiopathic hemolytic anemia - Hgb stable 4. HTN Plan: Labs and imaging reviewed. Previous CT did not show any splenomegaly. Heme on consult. I spoke with Dr. Parsons this AM. Patient will get 1U of leukophoresed platelets. Will give patient high dose steroids and immunoglobulin. Will place patient on Pepcid. Hgb is stable. Will continue home med Cardizem for HTN. Patient tolerating diet. Pain is controlled. Will monitor CBC. Case seen, discussed and reviewed with Dr. Ronald Keenan PGY3 - Date & Time Date: 04/15/18 Time: 09:23 <Jerry Cardenas - Last Filed: 04/18/18 21:34> Results - Vital Signs Recent Vital Signs: Last Vital Signs Temp 98.7 F 04/18/18 16:41 Pulse 55 L 04/18/18 16:41 Resp 20 04/18/18 16:41 BP 131/69 04/18/18 16:41 Pulse Ox 97 04/18/18 16:41 - Labs Result Diagrams: 04/17/18 07:00 04/16/18 04:15 Labs: Laboratory Results - last 24 hr 04/15/18 04:40 Blood Type A POSITIVE Antibody Screen Positive Antibody Identification WARM AUTO ANTIBODY Antigen Identification A1 Antigen - POSITIVE SOPHIE, Poly Interpret Positive H BBK History Checked Patient has bt Assessment & Plan - Assessment and Plan (Free Text) Plan: Pt seen and examined. I have reviewed the note of the expert medical writer and agree with it. I have discussed the assessment and plan with the resident. I have reviewed the patient's labs and medications. Pt with CLL and severe thr ombocytpenia. I did speak with Dr Parsons regarding the case. He will need Steroids and Gamma globulins. He will need CBC to follow platelets. Pt will be placed in the ICU. CT was done and reviewed.
[2018-04-15] MEDS ORDERED: IMMUNE GLOBULIN IV ONE (07:54)
[2018-04-15 08:36] LABS: PLATELET COUNT MANUAL 2 K/mm3 (120-450)
--- NOTE | 2018-04-15 09:07 | CP.CCUPN ---
<Abram Larson - Last Filed: 04/15/18 12:07> CCU Subjective - Physician Review Subjective (Free Text): Abram Larson DO, PGY-1 ICU Progress Note for Dr. Caryl Syed Mr. Donato is a 67 yo M with PMH of HTN, vitamin D deficiency, and hemolytic anemia who presented to ED with persistent gum bleeding since his dental appointment 3 days ago. He admits that he had a routine dental cleaning 3 days ago and his gums have been bleeding persistently since. 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 He states that he has had bleeding in the past and has seen Dr. Parsons for this condition in the past. He states that he has a history of anemia and that he gets tired and short of breath when he is anemic. He states that he had a bone marrow biopsy completed in the past and states that it was normal. The bleeding gums worried him so he states he made an appointment with Dr. Parsons which is in early May. He otherwise has no complaints and denies fever/chills, CP, SOB, dyspnea on exertion, nausea/vomiting/diarrhea, hematemesis, and hemoptysis. CCU Objective - Vital Signs / Intake & Output Intake and Output (Last 8hrs): Intake & Output 04/14/18 04/15/18 04/15/18 22:59 06:59 14:59 Weight 190 lb - Physical Exam Head: Positive for: Atraumatic, Normocephalic Pupils: Positive for: PERRL Extroacular Muscles: Positive for: EOMI Conjunctiva: Positive for: Normal Mouth: Positive for: Moist Mucous Membranes, Other (bleeding gums throughout mouth) Pharnyx: Negative for: ERYTHEMA, EXUDATE Neck: Positive for: Normal Range of Motion. Negative for: JVD Respiratory/Chest: Positive for: Clear to Auscultation, Good Air Exchange. Negative for: Respiratory Distress, Accessory Muscle Use Cardiovascular: Positive for: Regular Rate and Rhythm, Normal S1, S2. Negative for: Murmurs Abdomen: Negative for: Tenderness, Distention, Rebound, Guarding, Mass/Organomegaly Upper Extremity: Positive for: Normal Inspection. Negative for: Cyanosis, Edema Lower Extremity: Positive for: Normal Inspection. Negative for: Edema Neurological: Positive for: Speech Normal, Motor Func Grossly Intact Skin: Positive for: Rashes (numerous petechiae noted on lower legs bilaterally) Psychiatric: Positive for: Alert, Oriented x 3, Normal Insight, Normal Concentration - Medications Active Medications: Active Medications Generic Name Dose Route Start Last Admin Trade Name Gonzaloq PRN Reason Stop Dose Admin Diltiazem HCl 300 mg 04/15/18 10:00 Cardizem Cd PO DAILY NATHAN Immune Globulin 300 mls @ 50 mls/hr 04/15/18 10:00 Octagam 10% IV 04/19/18 15:59 DAILY NATHAN Methylprednisolone 125 mg 04/15/18 14:00 Solu-Medrol IVP Q8 NATHAN - Patient Studies Lab Studies: Lab Studies 04/15/18 04/15/18 04/15/18 Range/Units 05:00 04:40 04:40 WBC (4.5-11.0) 10^3/ul RBC (3.5-6.1) 10^6/uL Hgb (14.0-18.0) g/dL Hct (42.0-52.0) % MCV (80.0-105.0) fl MCH (25.0-35.0) pg MCHC (31.0-37.0) g/dl RDW (11.5-14.5) % Plt Count (120.0-450.0) 10^3/uL Manual Plt Count 2 L* (120-450) K/mm3 Gran % (50.0-68.0) % Lymph % (Auto) (22.0-35.0) % Sully % (Auto) (1.0-6.0) % Eos % (Auto) (1.5-5.0) % Baso % (Auto) (0.0-3.0) % Gran # (1.4-6.5) Lymph # (Auto) (1.2-3.4) Sully # (Auto) (0.1-0.6) Eos # (Auto) (0.0-0.7) Baso # (Auto) (0.0-2.0) K/mm3 Differential Comment See pathology report Retic Count 5.05 H (0.5-1.5) % PT (9.4-12.5) SECONDS INR APTT (25.1-36.5) Seconds Fibrinogen 269 (200-400) mg/dl Sodium (132-148) mmol/L Potassium (3.6-5.0) mmol/L Chloride (98-107) mmol/L Carbon Dioxide (21-33) mmol/L Anion Gap (10-20) BUN (7-21) mg/dL Creatinine (0.8-1.5) mg/dl Est GFR ( Amer) Est GFR (Non-Af Amer) Random Glucose (70-110) mg/dL Calcium (8.4-10.5) mg/dL Total Bilirubin (0.2-1.3) mg/dL AST (17-59) U/L ALT (7-56) U/L Alkaline Phosphatase (38-126) U/L Total Protein (5.8-8.3) g/dL Albumin (3.0-4.8) g/dL Globulin gm/dL Albumin/Globulin Ratio (1.1-1.8) Blood Type Antibody Screen BBK History Checked 04/15/18 04/15/18 04/15/18 Range/Units 04:40 04:40 04:40 WBC (4.5-11.0) 10^3/ul RBC (3.5-6.1) 10^6/uL Hgb (14.0-18.0) g/dL Hct (42.0-52.0) % MCV (80.0-105.0) fl MCH (25.0-35.0) pg MCHC (31.0-37.0) g/dl RDW (11.5-14.5) % Plt Count (120.0-450.0) 10^3/uL Manual Plt Count (120-450) K/mm3 Gran % (50.0-68.0) % Lymph % (Auto) (22.0-35.0) % Sully % (Auto) (1.0-6.0) % Eos % (Auto) (1.5-5.0) % Baso % (Auto) (0.0-3.0) % Gran # (1.4-6.5) Lymph # (Auto) (1.2-3.4) Sully # (Auto) (0.1-0.6) Eos # (Auto) (0.0-0.7) Baso # (Auto) (0.0-2.0) K/mm3 Differential Comment Retic Count (0.5-1.5) % PT 12.9 H (9.4-12.5) SECONDS INR 1.12 APTT 30.1 (25.1-36.5) Seconds Fibrinogen (200-400) mg/dl Sodium 139 (132-148) mmol/L Potassium 3.9 (3.6-5.0) mmol/L Chloride 105 (98-107) mmol/L Carbon Dioxide 23 (21-33) mmol/L Anion Gap 14 (10-20) BUN 16 (7-21) mg/dL Creatinine 1.4 (0.8-1.5) mg/dl Est GFR ( Amer) > 60 Est GFR (Non-Af Amer) 50 Random Glucose 126 H (70-110) mg/dL Calcium 8.8 (8.4-10.5) mg/dL Total Bilirubin 0.8 (0.2-1.3) mg/dL AST 18 (17-59) U/L ALT 20 (7-56) U/L Alkaline Phosphatase 65 (38-126) U/L Total Protein 8.0 (5.8-8.3) g/dL Albumin 4.3 (3.0-4.8) g/dL Globulin 3.7 gm/dL Albumin/Globulin Ratio 1.2 (1.1-1.8) Blood Type A POSITIVE Antibody Screen Positive BBK History Checked Patient has bt 04/15/18 Range/Units 04:40 WBC 2.4 L* D (4.5-11.0) 10^3/ul RBC 3.09 L (3.5-6.1) 10^6/uL Hgb 9.2 L D (14.0-18.0) g/dL Hct 28.9 L (42.0-52.0) % MCV 93.5 D (80.0-105.0) fl MCH 29.8 (25.0-35.0) pg MCHC 31.8 (31.0-37.0) g/dl RDW 18.7 H (11.5-14.5) % Plt Count 1 L* (120.0-450.0) 10^3/uL Manual Plt Count (120-450) K/mm3 Gran % 59.6 (50.0-68.0) % Lymph % (Auto) 18.5 L (22.0-35.0) % Sully % (Auto) 18.1 H (1.0-6.0) % Eos % (Auto) 1.7 (1.5-5.0) % Baso % (Auto) 2.1 (0.0-3.0) % Gran # 1.42 (1.4-6.5) Lymph # (Auto) 0.4 L (1.2-3.4) Sully # (Auto) 0.4 (0.1-0.6) Eos # (Auto) 0.0 (0.0-0.7) Baso # (Auto) 0.05 (0.0-2.0) K/mm3 Differential Comment Retic Count (0.5-1.5) % PT (9.4-12.5) SECONDS INR APTT (25.1-36.5) Seconds Fibrinogen (200-400) mg/dl Sodium (132-148) mmol/L Potassium (3.6-5.0) mmol/L Chloride (98-107) mmol/L Carbon Dioxide (21-33) mmol/L Anion Gap (10-20) BUN (7-21) mg/dL Creatinine (0.8-1.5) mg/dl Est GFR ( Amer) Est GFR (Non-Af Amer) Random Glucose (70-110) mg/dL Calcium (8.4-10.5) mg/dL Total Bilirubin (0.2-1.3) mg/dL AST (17-59) U/L ALT (7-56) U/L Alkaline Phosphatase (38-126) U/L Total Protein (5.8-8.3) g/dL Albumin (3.0-4.8) g/dL Globulin gm/dL Albumin/Globulin Ratio (1.1-1.8) Blood Type Antibody Screen BBK History Checked Laboratory Results - last 24 hr 04/15/18 04/15/18 04/15/18 04:40 04:40 04:40 WBC 2.4 L* D RBC 3.09 L Hgb 9.2 L D Hct 28.9 L MCV 93.5 D MCH 29.8 MCHC 31.8 RDW 18.7 H Plt Count 1 L* Manual Plt Count Gran % 59.6 Lymph % (Auto) 18.5 L Sully % (Auto) 18.1 H Eos % (Auto) 1.7 Baso % (Auto) 2.1 Gran # 1.42 Lymph # (Auto) 0.4 L Sully # (Auto) 0.4 Eos # (Auto) 0.0 Baso # (Auto) 0.05 Differential Comment Retic Count PT 12.9 H INR 1.12 APTT 30.1 Fibrinogen Sodium 139 Potassium 3.9 Chloride 105 Carbon Dioxide 23 Anion Gap 14 BUN 16 Creatinine 1.4 Est GFR ( Amer) > 60 Est GFR (Non-Af Amer) 50 Random Glucose 126 H Calcium 8.8 Total Bilirubin 0.8 AST 18 ALT 20 Alkaline Phosphatase 65 Total Protein 8.0 Albumin 4.3 Globulin 3.7 Albumin/Globulin Ratio 1.2 Blood Type Antibody Screen BBK History Checked 04/15/18 04/15/18 04/15/18 04:40 04:40 04:40 WBC RBC Hgb Hct MCV MCH MCHC RDW Plt Count Manual Plt Count Gran % Lymph % (Auto) Sully % (Auto) Eos % (Auto) Baso % (Auto) Gran # Lymph # (Auto) Sully # (Auto) Eos # (Auto) Baso # (Auto) Differential Comment Retic Count 5.05 H PT INR APTT Fibrinogen 269 Sodium Potassium Chloride Carbon Dioxide Anion Gap BUN Creatinine Est GFR ( Amer) Est GFR (Non-Af Amer) Random Glucose Calcium Total Bilirubin AST ALT Alkaline Phosphatase Total Protein Albumin Globulin Albumin/Globulin Ratio Blood Type A POSITIVE Antibody Screen Positive BBK History Checked Patient has bt 04/15/18 05:00 WBC RBC Hgb Hct MCV MCH MCHC RDW Plt Count Manual Plt Count 2 L* Gran % Lymph % (Auto) Sully % (Auto) Eos % (Auto) Baso % (Auto) Gran # Lymph # (Auto) Sully # (Auto) Eos # (Auto) Baso # (Auto) Differential Comment See pathology report Retic Count PT INR APTT Fibrinogen Sodium Potassium Chloride Carbon Dioxide Anion Gap BUN Creatinine Est GFR ( Amer) Est GFR (Non-Af Amer) Random Glucose Calcium Total Bilirubin AST ALT Alkaline Phosphatase Total Protein Albumin Globulin Albumin/Globulin Ratio Blood Type Antibody Screen BBK History Checked Review of Systems - Constitutional Constitutional: absent: Fever, Chills - EENT Eyes: absent: Blurred Vision - Cardiovascular Cardiovascular: absent: Chest Pain, Dyspnea - Respiratory Respiratory: absent: Cough, Dyspnea - Gastrointestinal Gastrointestinal: absent: Abdominal Pain, Nausea, Vomiting - Genitourinary Genitourinary: absent: Change in Urinary Stream - Integumentary Integumentary: Other (petechiae) Critical Care Progress Note - Nutrition Nutrition: Nutrition Category Date Time Status NPO Diet [DIET] Diets 04/15/18 Breakfast Ordered Assessment/Plan - Assessment and Plan (Free Text) Assessment: 67 yo M with PMH of HTN, vitamin D deficiency, hemolytic anemia presents with severe thrombocytopenia (platelets of 1). He is admitted to the ICU for further management. Plan: Neuro: -AAOx3, no FND, moving extremities past midline. -Monitor neuro status. -Reorient patient as necessary Heme/Onc: -Severe thrombocytopenia (platelets of 1) noted on admission to ED -Dr. Parsons evaluated patient this AM -Dr. Parsons states that thrombocytopenia is 2/2 underlying CLL -He was positive for CLL markers on flow cytometry -Per Dr. Parsons, cleared to give 1 unit of platelets -Will continue to monitor CBC Q4h -Will f/u Dr. Parsons recs -Patient has no signs of active bleeding -Stable to transfer to med/surg Cardio: -RRR, normotensive, no signs of HD compromise -Maintain MAP>65 -Monitor for S/S, HD compromise Pulm: -No signs of respiratory distress. CTA B/L -Patient is stating well on room air -Maintain O2 saturation>95% -O2 NC PRN GI: -Tolerating diet well -Use protonix for GI PPX for concern of worsened thrombocytopenia with pepcid /Nephro: -BUN/Cr stable at 16/1.4 -Monitor UOP -Replete electrolytes as needed -Maintain euvolemia Endocrinology: -Maintain euglycemia ID: -Afebrile, no leukocytosis -Monitor for signs and symptoms of infection GI PPX: Protonix, hold DVT PPX for thrombocytopenia Full Code Transfer to med/surg Case and plan reviewed and discussed with my attending Dr. Caryl Larson, DO IM Resident PGY-1 <Marilin Syed - Last Filed: 04/15/18 15:55> CCU Objective - Vital Signs / Intake & Output Vital Signs (Last 4 hours): Vital Signs Temp Pulse 04/15/18 14:00 71 04/15/18 12:00 99.1 F Intake and Output (Last 8hrs): Intake & Output 04/15/18 04/15/18 04/15/18 06:59 14:59 22:59 Intake Total 222 Balance 222 Weight 86.183 kg Intake: Blood Product 202 Apheresis Plts Acda Lr 202 Irr Unit [id number] Other 20 Apheresis Plts Acda Lr 20 Irr Unit [id number] - Medications Active Medications: Active Medications Generic Name Dose Route Start Last Admin Trade Name Freq PRN Reason Stop Dose Admin Diltiazem HCl 300 mg 04/15/18 10:00 04/15/18 09:16 Cardizem Cd PO 300 mg DAILY NATHAN Administration Immune Globulin 300 mls @ 50 mls/hr 04/15/18 10:00 04/15/18 10:41 Octagam 10% IV 04/19/18 15:59 50 mls/hr DAILY NATHAN Administration Methylprednisolone 125 mg 04/15/18 14:00 04/15/18 13:09 Solu-Medrol IVP 125 mg Q8 NATHAN Administration Pantoprazole Sodium 40 mg 04/15/18 10:15 04/15/18 10:43 Protonix Inj IVP 40 mg DAILY NATHAN Administration - Patient Studies Lab Studies: Lab Studies 04/15/18 04/15/18 04/15/18 Range/Units 05:00 04:40 04:40 WBC (4.5-11.0) 10^3/ul RBC (3.5-6.1) 10^6/uL Hgb (14.0-18.0) g/dL Hct (42.0-52.0) % MCV (80.0-105.0) fl MCH (25.0-35.0) pg MCHC (31.0-37.0) g/dl RDW (11.5-14.5) % Plt Count (120.0-450.0) 10^3/uL Manual Plt Count 2 L* (120-450) K/mm3 Gran % (50.0-68.0) % Lymph % (Auto) (22.0-35.0) % Sully % (Auto) (1.0-6.0) % Eos % (Auto) (1.5-5.0) % Baso % (Auto) (0.0-3.0) % Gran # (1.4-6.5) Lymph # (Auto) (1.2-3.4) Sully # (Auto) (0.1-0.6) Eos # (Auto) (0.0-0.7) Baso # (Auto) (0.0-2.0) K/mm3 Differential Comment See pathology report Retic Count 5.05 H (0.5-1.5) % PT (9.4-12.5) SECONDS INR APTT (25.1-36.5) Seconds Fibrinogen 269 (200-400) mg/dl Sodium (132-148) mmol/L Potassium (3.6-5.0) mmol/L Chloride (98-107) mmol/L Carbon Dioxide (21-33) mmol/L Anion Gap (10-20) BUN (7-21) mg/dL Creatinine (0.8-1.5) mg/dl Est GFR ( Amer) Est GFR (Non-Af Amer) Random Glucose (70-110) mg/dL Calcium (8.4-10.5) mg/dL Total Bilirubin (0.2-1.3) mg/dL AST (17-59) U/L ALT (7-56) U/L Alkaline Phosphatase (38-126) U/L Total Protein (5.8-8.3) g/dL Albumin (3.0-4.8) g/dL Globulin gm/dL Albumin/Globulin Ratio (1.1-1.8) Blood Type Antibody Screen Antibody Identification SOPHIE, Poly Interpret (NEGATIVE) BBK History Checked 04/15/18 04/15/18 04/15/18 Range/Units 04:40 04:40 04:40 WBC (4.5-11.0) 10^3/ul RBC (3.5-6.1) 10^6/uL Hgb (14.0-18.0) g/dL Hct (42.0-52.0) % MCV (80.0-105.0) fl MCH (25.0-35.0) pg MCHC (31.0-37.0) g/dl RDW (11.5-14.5) % Plt Count (120.0-450.0) 10^3/uL Manual Plt Count (120-450) K/mm3 Gran % (50.0-68.0) % Lymph % (Auto) (22.0-35.0) % Sully % (Auto) (1.0-6.0) % Eos % (Auto) (1.5-5.0) % Baso % (Auto) (0.0-3.0) % Gran # (1.4-6.5) Lymph # (Auto) (1.2-3.4) Sully # (Auto) (0.1-0.6) Eos # (Auto) (0.0-0.7) Baso # (Auto) (0.0-2.0) K/mm3 Differential Comment Retic Count (0.5-1.5) % PT 12.9 H (9.4-12.5) SECONDS INR 1.12 APTT 30.1 (25.1-36.5) Seconds Fibrinogen (200-400) mg/dl Sodium 139 (132-148) mmol/L Potassium 3.9 (3.6-5.0) mmol/L Chloride 105 (98-107) mmol/L Carbon Dioxide 23 (21-33) mmol/L Anion Gap 14 (10-20) BUN 16 (7-21) mg/dL Creatinine 1.4 (0.8-1.5) mg/dl Est GFR ( Amer) > 60 Est GFR (Non-Af Amer) 50 Random Glucose 126 H (70-110) mg/dL Calcium 8.8 (8.4-10.5) mg/dL Total Bilirubin 0.8 (0.2-1.3) mg/dL AST 18 (17-59) U/L ALT 20 (7-56) U/L Alkaline Phosphatase 65 (38-126) U/L Total Protein 8.0 (5.8-8.3) g/dL Albumin 4.3 (3.0-4.8) g/dL Globulin 3.7 gm/dL Albumin/Globulin Ratio 1.2 (1.1-1.8) Blood Type A POSITIVE Antibody Screen Positive Antibody Identification WARM AUTO ANTIBODY SOPHIE, Poly Interpret Positive H (NEGATIVE) BBK History Checked Patient has bt 04/15/18 Range/Units 04:40 WBC 2.4 L* D (4.5-11.0) 10^3/ul RBC 3.09 L (3.5-6.1) 10^6/uL Hgb 9.2 L D (14.0-18.0) g/dL Hct 28.9 L (42.0-52.0) % MCV 93.5 D (80.0-105.0) fl MCH 29.8 (25.0-35.0) pg MCHC 31.8 (31.0-37.0) g/dl RDW 18.7 H (11.5-14.5) % Plt Count 1 L* (120.0-450.0) 10^3/uL Manual Plt Count (120-450) K/mm3 Gran % 59.6 (50.0-68.0) % Lymph % (Auto) 18.5 L (22.0-35.0) % Sully % (Auto) 18.1 H (1.0-6.0) % Eos % (Auto) 1.7 (1.5-5.0) % Baso % (Auto) 2.1 (0.0-3.0) % Gran # 1.42 (1.4-6.5) Lymph # (Auto) 0.4 L (1.2-3.4) Sully # (Auto) 0.4 (0.1-0.6) Eos # (Auto) 0.0 (0.0-0.7) Baso # (Auto) 0.05 (0.0-2.0) K/mm3 Differential Comment Retic Count (0.5-1.5) % PT (9.4-12.5) SECONDS INR APTT (25.1-36.5) Seconds Fibrinogen (200-400) mg/dl Sodium (132-148) mmol/L Potassium (3.6-5.0) mmol/L Chloride (98-107) mmol/L Carbon Dioxide (21-33) mmol/L Anion Gap (10-20) BUN (7-21) mg/dL Creatinine (0.8-1.5) mg/dl Est GFR ( Amer) Est GFR (Non-Af Amer) Random Glucose (70-110) mg/dL Calcium (8.4-10.5) mg/dL Total Bilirubin (0.2-1.3) mg/dL AST (17-59) U/L ALT (7-56) U/L Alkaline Phosphatase (38-126) U/L Total Protein (5.8-8.3) g/dL Albumin (3.0-4.8) g/dL Globulin gm/dL Albumin/Globulin Ratio (1.1-1.8) Blood Type Antibody Screen Antibody Identification SOPHIE, Poly Interpret (NEGATIVE) BBK History Checked Laboratory Results - last 24 hr 04/15/18 04/15/18 04/15/18 04:40 04:40 04:40 WBC 2.4 L* D RBC 3.09 L Hgb 9.2 L D Hct 28.9 L MCV 93.5 D MCH 29.8 MCHC 31.8 RDW 18.7 H Plt Count 1 L* Manual Plt Count Gran % 59.6 Lymph % (Auto) 18.5 L Sully % (Auto) 18.1 H Eos % (Auto) 1.7 Baso % (Auto) 2.1 Gran # 1.42 Lymph # (Auto) 0.4 L Sully # (Auto) 0.4 Eos # (Auto) 0.0 Baso # (Auto) 0.05 Differential Comment Retic Count PT 12.9 H INR 1.12 APTT 30.1 Fibrinogen Sodium 139 Potassium 3.9 Chloride 105 Carbon Dioxide 23 Anion Gap 14 BUN 16 Creatinine 1.4 Est GFR ( Amer) > 60 Est GFR (Non-Af Amer) 50 Random Glucose 126 H Calcium 8.8 Total Bilirubin 0.8 AST 18 ALT 20 Alkaline Phosphatase 65 Total Protein 8.0 Albumin 4.3 Globulin 3.7 Albumin/Globulin Ratio 1.2 Blood Type Antibody Screen Antibody Identification SOPHIE, Poly Interpret BBK History Checked 04/15/18 04/15/18 04/15/18 04:40 04:40 04:40 WBC RBC Hgb Hct MCV MCH MCHC RDW Plt Count Manual Plt Count Gran % Lymph % (Auto) Sully % (Auto) Eos % (Auto) Baso % (Auto) Gran # Lymph # (Auto) Sully # (Auto) Eos # (Auto) Baso # (Auto) Differential Comment Retic Count 5.05 H PT INR APTT Fibrinogen 269 Sodium Potassium Chloride Carbon Dioxide Anion Gap BUN Creatinine Est GFR ( Amer) Est GFR (Non-Af Amer) Random Glucose Calcium Total Bilirubin AST ALT Alkaline Phosphatase Total Protein Albumin Globulin Albumin/Globulin Ratio Blood Type A POSITIVE Antibody Screen Positive Antibody Identification WARM AUTO ANTIBODY SOPHIE, Poly Interpret Positive H BBK History Checked Patient has bt 04/15/18 05:00 WBC RBC Hgb Hct MCV MCH MCHC RDW Plt Count Manual Plt Count 2 L* Gran % Lymph % (Auto) Sully % (Auto) Eos % (Auto) Baso % (Auto) Gran # Lymph # (Auto) Sully # (Auto) Eos # (Auto) Baso # (Auto) Differential Comment See pathology report Retic Count PT INR APTT Fibrinogen Sodium Potassium Chloride Carbon Dioxide Anion Gap BUN Creatinine Est GFR ( Amer) Est GFR (Non-Af Amer) Random Glucose Calcium Total Bilirubin AST ALT Alkaline Phosphatase Total Protein Albumin Globulin Albumin/Globulin Ratio Blood Type Antibody Screen Antibody Identification SOPHIE, Poly Interpret BBK History Checked Critical Care Progress Note - Nutrition Nutrition: Nutrition Category Date Time Status Heart Healthy Diet [DIET] Diets 04/15/18 Lunch Active Addendum Addendum: 04/15/18 15:55 ICU Attending Addendum Patient seen and examined. Case reviewed on round with housestaff. Agree with resident note above with the following additions/exceptions: 67 M with hx of lymphoma, HTN and Vitamin D deficiency who presented with gum bleeding found to be thrombocytopenic. His plat ct is 1 however is does not appear to be bleeding. Dental cleaning may have caused the initial bleeding however obv precipitated by low plat. Unclear why so thrombocyotpenic -smear shows now shcstocytes -no evid of sepsis, dic, or TTP -await hem/onc eval Otherwise he is clinically stable transfer out of ICU after plat transfusion repeat CBC post transfusion Of note, gum swelling is a side effect of CCB and he is on cardizem at home. This may be related. rest of care above Marilin Syed MD Medical Record [employer] Teacher
[2018-04-15] MEDS: diltiaZEM 300 mg/24 Hours CD Cap PO SCH (09:16)
[2018-04-15] MEDS: IMMUNE GLOBULIN 100 MG/ML IV SCH (10:41)
[2018-04-15 15:58] LABS: GRAN # 1.54 (1.4-6.5); GRAN % 83.2 % (50.0-68.0); HEMOGLOBIN 8.7 g/dL (14.0-18.0); LYMPH # 0.3 (1.2-3.4); LYMPH % 14.6 % (22.0-35.0); MEAN CELL VOLUME 94.5 fl (80.0-105.0); MEAN CORPUSCULAR HEMOGLOBIN 29.9 pg (25.0-35.0); MEAN CORPUSCULAR HGB CONC 31.6 g/dl (31.0-37.0); MONO % 2.2 % (1.0-6.0); RBC 2.91 10^6/uL (3.5-6.1); RED CELL DISTRIBUTION WIDTH 18.4 % (11.5-14.5)
[2018-04-15 16:00] LABS: PLATELET COUNT 1 10^3/uL (120.0-450.0); WHITE BLOOD COUNT 1.9 10^3/ul (4.5-11.0)
[2018-04-15 16:50] LABS: PLATELET ESTIMATE 2 (NORMAL)
--- NOTE | 2018-04-15 18:22 | CON ---
DATE: 04/15/2018 HEMATOLOGY CONSULTATION HISTORY OF PRESENT ILLNESS: This is a 67-year-old man known to me about a year ago, he presented with hemolytic anemia secondary to chronic lymphocytic leukemia, was treated with steroids and Rituxan and did very well. I was able to take morphed steroids after Rituxan, and he went back to work. I saw him only about a month or so ago, and he was doing fine. He says that in respect to that last 3 to 4 days, he started noticing rash on his legs. This is a petechia, but otherwise felt fine, went to see his dentist, who did the procedure and the patient just continued to bleed for the last 2 days or so. He came to the emergency room, besides having a platelet count of 1000 and white count about 2.5 with increasing monocytes, lymphocytes and the retic count is 6%. PHYSICAL EXAMINATION SKIN: Shows petechiae and submucosal bleeding from his mouth. Nothing in his eyes and conjunctivae. HEENT: Anicteric. NODES: None palpable in the axillary, cervical, supraclavicular or inguinal regions. LUNGS: Clear at present. No vertebral tenderness. HEART: S1 and S2. ABDOMEN: Shows no liver, no spleen, no tenderness. No rebound. EXTREMITIES: No edema. CLASS C DRIVER: No focal finding. 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 I start him on gamma globulin 30 g daily started today for 5 days, Solu-Medrol 125 mg every 8 hours for 5 days, Prilosec will be given to him. I spoke to the doctor, he has a doctor, and we will see how he does in the next several days. Edgardo Parsons MD
[2018-04-15 18:28] VITALS: BMI 28.9
[2018-04-15 20:40] LABS: GRAN # 1.52 (1.4-6.5); GRAN % 78.8 % (50.0-68.0); HEMOGLOBIN 8.5 g/dL (14.0-18.0); LYMPH # 0.3 (1.2-3.4); LYMPH % 17.1 % (22.0-35.0); MEAN CELL VOLUME 94.7 fl (80.0-105.0); MEAN CORPUSCULAR HEMOGLOBIN 30.1 pg (25.0-35.0); MEAN CORPUSCULAR HGB CONC 31.8 g/dl (31.0-37.0); MONO # 0.1 (0.1-0.6); MONO % 4.1 % (1.0-6.0); RBC 2.82 10^6/uL (3.5-6.1); RED CELL DISTRIBUTION WIDTH 18.3 % (11.5-14.5)
[2018-04-15 20:58] LABS: PLATELET COUNT 7 10^3/uL (120.0-450.0); WHITE BLOOD COUNT 1.9 10^3/ul (4.5-11.0)
[2018-04-15 22:05] LABS: PLATELET ESTIMATE 8 (NORMAL)
[2018-04-16 02:09] LABS: GRAN # 2.44 (1.4-6.5); GRAN % 84.2 % (50.0-68.0); HEMOGLOBIN 8.3 g/dL (14.0-18.0); LYMPH # 0.3 (1.2-3.4); MEAN CELL VOLUME 93.2 fl (80.0-105.0); MEAN CORPUSCULAR HEMOGLOBIN 29.7 pg (25.0-35.0); MEAN CORPUSCULAR HGB CONC 31.9 g/dl (31.0-37.0); MONO # 0.1 (0.1-0.6); MONO % 4.8 % (1.0-6.0); RBC 2.79 10^6/uL (3.5-6.1); RED CELL DISTRIBUTION WIDTH 17.9 % (11.5-14.5)
[2018-04-16 02:16] LABS: PLATELET COUNT 1 10^3/uL (120.0-450.0); WHITE BLOOD COUNT 2.9 10^3/ul (4.5-11.0)
[2018-04-16 04:34] LABS: GRAN # 2.53 (1.4-6.5); GRAN % 84.3 % (50.0-68.0); LYMPH # 0.3 (1.2-3.4); LYMPH % 10.7 % (22.0-35.0); MEAN CELL VOLUME 93.6 fl (80.0-105.0); MEAN CORPUSCULAR HEMOGLOBIN 30.2 pg (25.0-35.0); MEAN CORPUSCULAR HGB CONC 32.3 g/dl (31.0-37.0); MONO # 0.2 (0.1-0.6); RBC 2.65 10^6/uL (3.5-6.1); RED CELL DISTRIBUTION WIDTH 18.1 % (11.5-14.5)
[2018-04-16 04:40] LABS: PLATELET COUNT 3 10^3/uL (120.0-450.0)
[2018-04-16 04:42] LABS: ALT/SGPT 18 U/L (7-56); AST/SGOT 16 U/L (17-59); BLOOD UREA NITROGEN 19 mg/dL (7-21); CALCIUM 8.9 mg/dL (8.4-10.5); GFR NON-AFRICAN AMERICAN 55
[2018-04-16 08:36] LABS: GRAN # 2.86 (1.4-6.5); GRAN % 85.2 % (50.0-68.0); HEMOGLOBIN 8.2 g/dL (14.0-18.0); LYMPH # 0.3 (1.2-3.4); LYMPH % 8.3 % (22.0-35.0); MEAN CELL VOLUME 92.7 fl (80.0-105.0); MEAN CORPUSCULAR HEMOGLOBIN 29.9 pg (25.0-35.0); MEAN CORPUSCULAR HGB CONC 32.3 g/dl (31.0-37.0); MONO # 0.2 (0.1-0.6); MONO % 6.5 % (1.0-6.0); RBC 2.74 10^6/uL (3.5-6.1); RED CELL DISTRIBUTION WIDTH 18.3 % (11.5-14.5); WHITE BLOOD COUNT 3.4 10^3/ul (4.5-11.0)
[2018-04-16 08:40] LABS: PLATELET COUNT 6 10^3/uL (120.0-450.0)
[2018-04-16 10:08] LABS: PLATELET ESTIMATE 8 (NORMAL)
[2018-04-16] MEDS: diltiaZEM 300 mg/24 Hours CD Cap PO SCH (10:17)
[2018-04-16] MEDS: IMMUNE GLOBULIN 100 MG/ML IV SCH (10:26)
[2018-04-16 12:31] LABS: GRAN # 2.86 (1.4-6.5); GRAN % 85.2 % (50.0-68.0); HEMOGLOBIN 8.2 g/dL (14.0-18.0); LYMPH # 0.3 (1.2-3.4); LYMPH % 8.3 % (22.0-35.0); MEAN CELL VOLUME 92.7 fl (80.0-105.0); MEAN CORPUSCULAR HEMOGLOBIN 29.9 pg (25.0-35.0); MEAN CORPUSCULAR HGB CONC 32.3 g/dl (31.0-37.0); MONO # 0.2 (0.1-0.6); MONO % 6.5 % (1.0-6.0); PLATELET COUNT 6 10^3/uL (120.0-450.0); RBC 2.74 10^6/uL (3.5-6.1); RED CELL DISTRIBUTION WIDTH 18.3 % (11.5-14.5); WHITE BLOOD COUNT 3.4 10^3/ul (4.5-11.0)
[2018-04-16 13:35] LABS: PLATELET ESTIMATE 8 (NORMAL)
[2018-04-17] MEDS ORDERED: Iohexol 350 MG/100 ML VIAL ONE (04:04)
--- NOTE | 2018-04-17 06:10 | PN ---
DATE: 04/16/2018 SUBJECTIVE: Patient is 67 years old, seen and examined, lying in bed. Seems to be comfortable, offers no complaints. Eating and tolerating. No fever. No chills. No nausea, vomiting. No bleeding from any side including rectal or hematuria. PHYSICAL EXAMINATION: VITAL SIGNS: He is afebrile, pulse 60, respirations 18, blood pressure 140/82. LUNGS: Bilateral fair airflow. No rhonchi or crackle. HEART: S1 and S2 audible. ABDOMEN: Soft and nontender. No rebound. No guarding. NEUROLOGIC: Patient is awake, alert, oriented, communicative. LABORATORY EXAM: WBC 33.4, hemoglobin 8.2, hematocrit 25.4, platelet of . Chemistry: Sodium 136, potassium 4.4, chloride 104, CO2 21, BUN 19, creatinine 1.3, blood sugar of 213. ASSESSMENT: 1. Recurrence of chronic lymphocytic leukemia. 2. Probably idiopathic thrombocytopenia. 3. Hypertension. 4. Leukoderma of both hands. PLAN: Patient has been started on high-dose steroid. We will monitor CBC. Encourage ambulation. We will follow up patient in a.m. Krystyna Donaldson MD
[2018-04-17] MEDS: Pantoprazole 40 mg EC Tab PO SCH (06:32)
[2018-04-17 08:32] LABS: GRAN # 2.94 (1.4-6.5); GRAN % 79.1 % (50.0-68.0); HEMOGLOBIN 8.1 g/dL (14.0-18.0); LYMPH # 0.4 (1.2-3.4); MEAN CELL VOLUME 95.5 fl (80.0-105.0); MEAN CORPUSCULAR HEMOGLOBIN 30.1 pg (25.0-35.0); MEAN CORPUSCULAR HGB CONC 31.5 g/dl (31.0-37.0); MONO # 0.4 (0.1-0.6); MONO % 9.9 % (1.0-6.0); RBC 2.69 10^6/uL (3.5-6.1); WHITE BLOOD COUNT 3.7 10^3/ul (4.5-11.0)
[2018-04-17] MEDS: diltiaZEM 300 mg/24 Hours CD Cap PO SCH (10:17)
[2018-04-17 10:20] VITALS: RESP 20
[2018-04-17 10:33] LABS: PLATELET COUNT 23 10^3/uL (120.0-450.0); PLATELET ESTIMATE 37 (NORMAL)
[2018-04-17] MEDS: IMMUNE GLOBULIN 100 MG/ML IV SCH (11:47)
--- NOTE | 2018-04-17 19:54 | CON ---
DATE: 04/17/2018 HEMATOLOGY CONSULTATION HISTORY OF PRESENT ILLNESS: This is a known chronic lymphocytic leukemia, who presents last year with hemolytic anemia and ITP secondary to CLL, received Rituxan and steroids. He was well until just last few days, but a week before this admission, started developing petechiae. In any event, he is now getting Solu-Medrol three times a day plus the gammaglobulin and he is feeling somewhat better, although he said that he was feeling badly before he came to the hospital when he started bleeding from his dental extraction. In any event, white count was 1.9 now, 3.4 as of yesterday. Hemoglobin has been around the same 8.5 to 8.2 with the platelet count 1000, is now 6000. Still has a petechiae. I do not see any new ones on his legs, now still seems bleeding, but no new areas that I can detect. Sugar is about 213 that will go on his steroids. At this point, CBC is not ready yet. We will continue this treatment for 5 days total, so that another three days. We will see what the CBC shows over the next couple of days. So no change in the treatment. Edgardo Parsons MD
--- NOTE | 2018-04-17 20:24 | PN ---
DATE: 04/17/2018 SUBJECTIVE: The patient is a 67-year-old, seen and examined. Offers no complaints. Eating and tolerating. No nausea, vomiting. No hematuria. No rectal bleeding. No gum bleeding. PHYSICAL EXAMINATION: VITAL SIGNS: He is afebrile, pulse 60, respirations 20, blood pressure 163/73. LUNGS: Bilateral fair airflow. No rhonchi or crackle. HEART: S1 and S2 audible. ABDOMEN: Soft and nontender. No rebound. No guarding. NEUROLOGIC: The patient is awake, alert, oriented, communicative. LABORATORY DATA: WBC 3.7, hemoglobin 8.1, hematocrit 25.7, platelet of 23. Chemistry: Sodium 136, potassium 4.4, chloride 104, CO2 of 21, BUN 19, creatinine 1.3, blood sugar of 213. ASSESSMENT: 1. Idiopathic thrombocytopenia. 2. Chronic lymphocytic leukemia. 3. Hypertension. PLAN: The patient is getting steroid and IV gamma globulin. He is on diltiazem. He is also getting IV steroid. Start him on losartan. Since his blood pressure is running high, we will give him one dose of 50 mg stat. Monitor his blood pressure closely. Krystyna Donaldson MD
[2018-04-18] MEDS: Pantoprazole 40 mg EC Tab PO SCH (05:07)
--- NOTE | 2018-04-18 09:41 | CP.PCM.PN ---
<Alyse Keenan - Last Filed: 04/18/18 12:34> Subjective - Date & Time of Evaluation Date of Evaluation: 04/18/18 Time of Evaluation: 07:00 - Subjective Subjective: Medicine Progress Note for Reyes Zhang PGY3 Patient seen and examined at bedside. There were no acute overnight events as per nursing staff. Patient reports feeling much better today. His bleeding gums have resolved.. He denies chest pain, shortness of breath, nausea/vomiting/diarrhea, fever or chills, dysuria or hematuria. Objective - Vital Signs/Intake and Output Vital Signs (last 24 hours): Temp Pulse Resp BP Pulse Ox 97.7 F 55 L 20 128/71 98 04/18/18 08:48 04/18/18 08:48 04/18/18 08:48 04/18/18 08:48 04/18/18 08:48 - Medications Medications: Current Medications Diltiazem HCl (Cardizem Cd) 300 mg PO DAILY [facility] Last Admin: 04/17/18 10:17 Dose: 300 mg Immune Globulin (Octagam 10%) 300 mls @ 50 mls/hr IV DAILY [facility] Stop: 04/19/18 15:59 Last Admin: 04/17/18 11:47 Dose: 50 mls/hr Losartan Potassium (Cozaar) 50 mg PO DAILY [facility] Last Admin: 04/17/18 17:26 Dose: 50 mg Methylprednisolone (Solu-Medrol) 125 mg IVP Q8 [facility] Last Admin: 04/18/18 05:07 Dose: 125 mg Pantoprazole Sodium (Protonix Ec Tab) 40 mg PO 0600 [facility] Last Admin: 04/18/18 05:07 Dose: 40 mg - Labs Labs: 04/17/18 07:00 04/16/18 04:15 PT 12.9 SECONDS (9.4-12.5) H 04/15/18 04:40 INR 1.12 04/15/18 04:40 APTT 30.1 Seconds (25.1-36.5) 04/15/18 04:40 - Constitutional Appears: No Acute Distress - Head Exam Head Exam: ATRAUMATIC, NORMAL INSPECTION, NORMOCEPHALIC - Eye Exam Eye Exam: EOMI, Normal appearance, PERRL Pupil Exam: NORMAL ACCOMODATION, PERRL - ENT Exam ENT Exam: Mucous Membranes Moist, Normal Exam, Normal Oropharynx Additional comments: no bleeding noted - Respiratory Exam Respiratory Exam: Clear to Ausculation Bilateral, NORMAL BREATHING PATTERN. absent: Rales, Rhonchi, Wheezes, Respiratory Distress - Cardiovascular Exam Cardiovascular Exam: REGULAR RHYTHM, RRR, +S1, +S2. absent: Gallop, Rubs, Murmur - GI/Abdominal Exam GI & Abdominal Exam: Soft, Normal Bowel Sounds. absent: Guarding, Rigid, Tenderness, Mass, Organomegaly, Rebound - Extremities Exam Extremities Exam: Full ROM, Normal Capillary Refill, Normal Inspection. absent: Pedal Edema, Tenderness - Neurological Exam Neurological Exam: Awake, Normal Gait, Oriented x3 - Psychiatric Exam Psychiatric exam: Normal Affect, Normal Mood - Skin Skin Exam: Intact, Normal Color, Petechiae (on LE), Warm Assessment and Plan - Assessment and Plan (Free Text) Assessment: 1. 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 CLL - had tx of steroids and Rituxin a couple months ago 3. Microangiopathic hemolytic anemia - Hgb stable 4. HTN Plan: Labs and imaging reviewed. Platelet count increasing. Heme on consult. Patient is on high dose steroids and immunoglobulin. He will need a total of 5 day course. This is day #3. Continue Cardizem for HTN. Protonix fo GI ppx. Patient is tolerating diet and ambulating well. He is not in any pain. He will be d/c home on Wednesday and follow up with Dr. Parsons as outpatient. Case seen, discussed and reviewed with Dr. Ronald Keenan PGY3 <Jerry Cardenas S - Last Filed: 04/18/18 21:05> Objective - Vital Signs/Intake and Output Vital Signs (last 24 hours): Temp Pulse Resp BP Pulse Ox 98.7 F 55 L 20 131/69 97 04/18/18 16:41 04/18/18 16:41 04/18/18 16:41 04/18/18 16:41 04/18/18 16:41 Intake and Output: 04/18/18 04/19/18 18:59 06:59 Intake Total 840 Balance 840 - Medications Medications: Current Medications Diltiazem HCl (Cardizem Cd) 300 mg PO DAILY [facility] Last Admin: 04/18/18 10:42 Dose: 300 mg Immune Globulin (Octagam 10%) 300 mls @ 50 mls/hr IV DAILY [facility] Stop: 04/19/18 15:59 Last Admin: 04/18/18 10:42 Dose: 50 mls/hr Losartan Potassium (Cozaar) 50 mg PO DAILY [facility] Last Admin: 04/18/18 10:42 Dose: 50 mg Methylprednisolone (Solu-Medrol) 125 mg IVP Q8 [facility] Last Admin: 04/18/18 12:59 Dose: 125 mg Pantoprazole Sodium (Protonix Ec Tab) 40 mg PO 0600 [facility] Last Admin: 04/18/18 05:07 Dose: 40 mg - Labs Labs: 04/17/18 07:00 04/16/18 04:15 PT 12.9 SECONDS (9.4-12.5) H 04/15/18 04:40 INR 1.12 04/15/18 04:40 APTT 30.1 Seconds (25.1-36.5) 04/15/18 04:40 Assessment and Plan - Assessment and Plan (Free Text) Plan: Pt seen and examined. I have reviewed the note of the medical record librarian and agree with it. I have discussed the assessment and plan with the resident. I have reviewed the patient's labs and medications. He has CLL and his platelet count is improving. He is on Gamma globulin and IV steroids. On Cardizem for HTN. Pt with no pain.
[2018-04-18] MEDS: IMMUNE GLOBULIN 100 MG/ML IV SCH (10:42)
[2018-04-18] MEDS: diltiaZEM 300 mg/24 Hours CD Cap PO SCH (10:42)
[2018-04-19] MEDS: Pantoprazole 40 mg EC Tab PO SCH (06:31)
--- NOTE | 2018-04-19 07:05 | CP.PCM.PN ---
<Alyse Keenan - Last Filed: 04/19/18 09:08> Subjective - Date & Time of Evaluation Date of Evaluation: 04/19/18 Time of Evaluation: 07:00 - Subjective Subjective: Medicine Progress Note for Reyes Zhang PGY3 Patient seen and examined at bedside. I spoke with nursing staff and there were no acute overnight events. Patient reports feeling well today. He denies chest pain, shortness of breath, nausea/vomiting/diarrhea, fever/chills, numbness/tingling, dysuria or hematuria. Objective - Vital Signs/Intake and Output Vital Signs (last 24 hours): Temp Pulse Resp BP Pulse Ox 98.7 F 55 L 20 131/69 97 04/18/18 16:41 04/18/18 16:41 04/18/18 16:41 04/18/18 16:41 04/18/18 16:41 - Medications Medications: Current Medications Diltiazem HCl (Cardizem Cd) 300 mg PO DAILY [facility] Last Admin: 04/18/18 10:42 Dose: 300 mg Immune Globulin (Octagam 10%) 300 mls @ 50 mls/hr IV DAILY [facility] Stop: 04/19/18 15:59 Last Admin: 04/18/18 10:42 Dose: 50 mls/hr Losartan Potassium (Cozaar) 50 mg PO DAILY [facility] Last Admin: 04/18/18 10:42 Dose: 50 mg Methylprednisolone (Solu-Medrol) 125 mg IVP Q8 [facility] Last Admin: 04/18/18 21:54 Dose: 125 mg Pantoprazole Sodium (Protonix Ec Tab) 40 mg PO 0600 [facility] Last Admin: 04/19/18 06:31 Dose: 40 mg - Labs Labs: 04/17/18 07:00 04/16/18 04:15 PT 12.9 SECONDS (9.4-12.5) H 04/15/18 04:40 INR 1.12 04/15/18 04:40 APTT 30.1 Seconds (25.1-36.5) 04/15/18 04:40 - Constitutional Appears: No Acute Distress - Head Exam Head Exam: ATRAUMATIC, NORMAL INSPECTION, NORMOCEPHALIC - Eye Exam Eye Exam: Normal appearance, PERRL Pupil Exam: NORMAL ACCOMODATION, PERRL - ENT Exam ENT Exam: Mucous Membranes Moist Additional comments: No bleeding gums noted - Neck Exam Neck Exam: Full ROM, Normal Inspection. absent: Lymphadenopathy, Tenderness - Respiratory Exam Respiratory Exam: Clear to Ausculation Bilateral, NORMAL BREATHING PATTERN. absent: Rales, Rhonchi, Wheezes, Respiratory Distress - Cardiovascular Exam Cardiovascular Exam: REGULAR RHYTHM, +S1, +S2. absent: Gallop, Rubs, Murmur - GI/Abdominal Exam GI & Abdominal Exam: Soft, Normal Bowel Sounds. absent: Guarding, Rigid, Tenderness, Mass, Rebound - Extremities Exam Extremities Exam: Full ROM, Normal Capillary Refill, Normal Inspection. absent: Calf Tenderness, Pedal Edema, Tenderness - Neurological Exam Neurological Exam: Alert, Awake, CN II-XII Intact, Normal Gait, Oriented x3. absent: Motor Sensory Deficit - Psychiatric Exam Psychiatric exam: Normal Affect, Normal Mood - Skin Skin Exam: Dry, Intact, Normal Color, Petechiae (on bilateral LE, improving ), Warm Assessment and Plan - Assessment and Plan (Free Text) Assessment: 1. Severe Idiopathic thrombocytopenia - improving - Secondary to CLL 2. CLL - had tx of steroids and Rituxin a couple months ago 3. Microangiopathic hemolytic anemia - Hgb stable 4. HTN Plan: Labs and imaging reviewed. Patient doing well. He is on Solumedrol and Gamma zena bulin day # 4 out of 5. Will complete 5 day course. Continue Cardizem for HTN. Patient is on Protonix for GI prophylaxis while on high dose steroids. Pain is controlled and and patient is tolerating diet. Plan for d/c home tomorrow after completing 5th day of treatment. Case seen, discussed and reviewed with Dr. Ronald Keenan PGY3 <Jerry Cardenas S - Last Filed: 04/19/18 19:27> Objective - Vital Signs/Intake and Output Vital Signs (last 24 hours): Temp Pulse Resp BP Pulse Ox 97.8 F 60 20 140/81 98 04/19/18 08:10 04/19/18 09:20 04/19/18 08:10 04/19/18 09:20 04/19/18 08:10 Intake and Output: 04/19/18 04/20/18 18:59 06:59 Intake Total 1700 Balance 1700 - Medications Medications: Current Medications Diltiazem HCl (Cardizem Cd) 300 mg PO DAILY [facility] Last Admin: 04/19/18 09:19 Dose: 300 mg Losartan Potassium (Cozaar) 50 mg PO DAILY [facility] Last Admin: 04/19/18 09:20 Dose: 50 mg Methylprednisolone (Solu-Medrol) 125 mg IVP Q8 [facility] Last Admin: 04/19/18 14:20 Dose: 125 mg Pantoprazole Sodium (Protonix Ec Tab) 40 mg PO 0600 [facility] Last Admin: 04/19/18 06:31 Dose: 40 mg - Labs Labs: 04/17/18 07:00 04/16/18 04:15 PT 12.9 SECONDS (9.4-12.5) H 04/15/18 04:40 INR 1.12 04/15/18 04:40 APTT 30.1 Seconds (25.1-36.5) 04/15/18 04:40 Assessment and Plan - Assessment and Plan (Free Text) Plan: Pt seen and examined. I have reviewed the note of the medical office technology instructor and agree with it. I have discussed the assessment and plan with the resident. I have reviewed the patient's labs and medications. Pt on Gamma globulin and Solumedrol for the CLL and thrombocytopenia. Pt on Protonix for GI prophylaxis as pt is on steroids. Pt will f/u with Dr Parsons. Continue with Nasim for HTN.
[2018-04-19] MEDS: diltiaZEM 300 mg/24 Hours CD Cap PO SCH (09:19)
[2018-04-19] MEDS: IMMUNE GLOBULIN 100 MG/ML IV SCH (09:50)
[2018-04-19 20:45] VITALS: TEMP 97.6; O2SAT 95
--- NOTE | 2018-04-20 00:45 | CON ---
DATE: 04/19/2018 HEMATOLOGY EVALUATION HISTORY OF PRESENT ILLNESS: This is a 67-year-old man with CLL and hemolytic anemia and thrombocytopenia. He is doing much better. He is getting fifth day of IgG gammaglobulin infusion plus the Solu-Medrol 125 mg t.i.d. He is feeling much better. The petechiae had gone away. The mouth is much better. There is no more blood blisters. The platelet count today is 23,000. We will get another count on him tomorrow. He knows to come to my office on Wednesday. I will do CBC on him then, and then we will see if we can start him on Rituxan or bendamustine or one of the other medications, but he is aware that. So I will see him. He is going to go home on 20 mg of prednisone b.i.d. and I will repeat the CBC on him on Wednesday. Edgardo Parosns MD
[2018-04-20] MEDS: Pantoprazole 40 mg EC Tab PO SCH (05:39)
--- NOTE | 2018-04-20 06:33 | CP.PCM.DIS ---
<Alyse Keenan - Last Filed: 04/20/18 07:45> Provider - Provider Date of Admission: 04/15/18 05:26 Attending physician: Jerry Cardenas MD Primary care physician: Dwayne Leach MD Consults: Heme: Dr. Parsons Time Spent in preparation of Discharge (in minutes): 35 Hospital Course - Lab Results Lab Results: Micro Results 04/15/18 07:45 Naris MRSA Culture (Admit) - Final MRSA NOT DETECTED Most Recent Lab Values WBC 3.7 10^3/ul (4.5-11.0) L 04/17/18 07:00 RBC 2.69 10^6/uL (3.5-6.1) L 04/17/18 07:00 Hgb 8.1 g/dL (14.0-18.0) L 04/17/18 07:00 Hct 25.7 % (42.0-52.0) L 04/17/18 07:00 MCV 95.5 fl (80.0-105.0) 04/17/18 07:00 MCH 30.1 pg (25.0-35.0) 04/17/18 07:00 MCHC 31.5 g/dl (31.0-37.0) 04/17/18 07:00 RDW 19.0 % (11.5-14.5) H 04/17/18 07:00 Plt Count 23 10^3/uL (120.0-450.0) L* 04/17/18 07:00 Manual Plt Count 2 K/mm3 (120-450) L* 04/15/18 05:00 Gran % 79.1 % (50.0-68.0) H 04/17/18 07:00 Lymph % (Auto) 11.0 % (22.0-35.0) L 04/17/18 07:00 [place] % (Auto) 9.9 % (1.0-6.0) H 04/17/18 07:00 Eos % (Auto) 0.0 % (1.5-5.0) L 04/17/18 07:00 Baso % (Auto) 0.0 % (0.0-3.0) 04/17/18 07:00 Gran # 2.94 (1.4-6.5) 04/17/18 07:00 Lymph # (Auto) 0.4 (1.2-3.4) L 04/17/18 07:00 [place] # (Auto) 0.4 (0.1-0.6) 04/17/18 07:00 Eos # (Auto) 0.0 (0.0-0.7) 04/17/18 07:00 Baso # (Auto) 0.00 K/mm3 (0.0-2.0) 04/17/18 07:00 Differential Comment See pathology report 04/15/18 05:00 Platelet Evaluation 37 (NORMAL) 04/17/18 07:00 Retic Count 5.05 % (0.5-1.5) H 04/15/18 04:40 Haptoglobin 117.7 mg/dL (30.0-200.0) 04/15/18 08:15 PT 12.9 SECONDS (9.4-12.5) H 04/15/18 04:40 INR 1.12 04/15/18 04:40 APTT 30.1 Seconds (25.1-36.5) 04/15/18 04:40 Fibrinogen 269 mg/dl (200-400) 04/15/18 04:40 Sodium 136 mmol/L (132-148) 04/16/18 04:15 Potassium 4.4 mmol/L (3.6-5.0) 04/16/18 04:15 Chloride 104 mmol/L (98-107) 04/16/18 04:15 Carbon Dioxide 21 mmol/L (21-33) 04/16/18 04:15 Anion Gap 15 (10-20) 04/16/18 04:15 BUN 19 mg/dL (7-21) 04/16/18 04:15 Creatinine 1.3 mg/dl (0.8-1.5) 04/16/18 04:15 Est GFR ( Amer) > 60 04/16/18 04:15 Est GFR (Non-Af Amer) 55 04/16/18 04:15 Random Glucose 213 mg/dL (70-110) H 04/16/18 04:15 Calcium 8.9 mg/dL (8.4-10.5) 04/16/18 04:15 Phosphorus 3.5 mg/dL (2.5-4.5) 04/16/18 04:15 Magnesium 2.2 mg/dL (1.7-2.2) 04/16/18 04:15 Total Bilirubin 0.5 mg/dL (0.2-1.3) 04/16/18 04:15 AST 16 U/L (17-59) L 04/16/18 04:15 ALT 18 U/L (7-56) 04/16/18 04:15 Alkaline Phosphatase 56 U/L (38-126) 04/16/18 04:15 Total Protein 8.0 g/dL (5.8-8.3) 04/16/18 04:15 Albumin 4.0 g/dL (3.0-4.8) 04/16/18 04:15 Globulin 4.0 gm/dL 04/16/18 04:15 Albumin/Globulin Ratio 1.0 (1.1-1.8) L 04/16/18 04:15 Blood Type A POSITIVE 04/15/18 04:40 Antibody Screen Positive 04/15/18 04:40 Antibody Identification WARM AUTO ANTIBODY 04/15/18 04:40 Antigen Identification A1 Antigen - POSITIVE 04/15/18 04:40 SOPHIE, Poly Interpret Positive (NEGATIVE) H 04/15/18 04:40 BBK History Checked Patient has bt 04/15/18 04:40 - Hospital Course Hospital Course: This is a 67yo male with past medical history of HTN, CLL, microangiopathic hemolytic anemia who was admitted for severe ITP secondary to CLL. Heme was consulted. Labs and imaging reviewed. Patient was placed on high dose solumedrol and gamma globulin. Patient completed 5 days of treatment. Platelets improved greatly. Hgb remained stable. Patient's home med Cardizem was continued for HTN. Cozaar was added for another BP medication. He remained stable throughout his stay. Patient will be d/c home with Prednisone taper and Protonix while on the steroids. He was given a prescription for Cozaar. He will follow up with Dr. Leach this week. Patient will follow up with Dr. Parsons on Wednesday for steroid taper and chemotherapy. Patient was educated on diagnosis of CLL and encouraged to read about his diagnosis. CLL and ITP info given in d/c information. Patient verbalized and agreed with discharge plan. - Date & Time of H&P Date of H&P: 04/15/18 Time of H&P: 06:00 Discharge Exam - Head Exam Head Exam: ATRAUMATIC, NORMAL INSPECTION, NORMOCEPHALIC - Eye Exam Eye Exam: EOMI, Normal appearance, PERRL Pupil Exam: NORMAL ACCOMODATION, PERRL - ENT Exam ENT Exam: Mucous Membranes Moist - Neck Exam Neck exam: Full Rom, Normal Inspection - Respiratory Exam Respiratory Exam: Clear to PA & Lateral, NORMAL BREATHING PATTERN, UNREMARKABLE. absent: Rales, Rhonchi, Wheezes, Respiratory Distress - Cardiovascular Exam Cardiovascular Exam: REGULAR RHYTHM, RRR, +S1, +S2. absent: Diastolic murmur, Gallop, Rubs, Systolic Murmur - GI/Abdominal Exam GI & Abdominal Exam: Normal Bowel Sounds, Soft, Unremarkable. absent: Mass, Rebound, Rigid, Tenderness - Extremities Exam Extremities exam: normal capillary refill, normal inspection, pedal pulses present - Neurological Exam Neurological exam: Alert, CN II-XII Intact, Normal Gait, Oriented x3 - Psychiatric Exam Psychiatric exam: Normal Affect, Normal Mood - Skin Skin Exam: Dry, Intact, Normal Color, Warm Additional comments: No petechiae seen Discharge Plan - Discharge Medications Prescriptions: RX: Losartan [Cozaar] 50 mg PO DAILY #30 tab RX: Prednisone [Deltasone] 20 mg PO BID #30 tablet Pantoprazole Sodium [Protonix] 20 mg PO DAILY #14 ect - Follow Up Plan Condition: CRITICAL Disposition: HOME/ ROUTINE Instructions: Chronic Lymphocytic Leukemia (CLL), Immune Thrombocytopenia (ITP) (DC) Additional Instructions: 1. Continue Prednisone 20mg twice per day. 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 2. Continue new blood pressure medication: Cozaar 50mg daily 3. Re-check blood pressure with primary care doctor 4. Follow up with Dr. Parsons on Wednesday Referrals: Dwayne Leach MD [Primary Care Provider] - <Jerry Cardenas - Last Filed: 04/20/18 21:25> Provider - Provider Date of Admission: 04/15/18 05:26 Attending physician: Jerry Cardenas MD Primary care physician: Dwayne Leach MD Hospital Course - Lab Results Lab Results: Micro Results 04/15/18 07:45 Naris MRSA Culture (Admit) - Final MRSA NOT DETECTED Most Recent Lab Values WBC 2.6 10^3/ul (4.5-11.0) L* D 04/20/18 06:30 RBC 2.92 10^6/uL (3.5-6.1) L 04/20/18 06:30 Hgb 8.8 g/dL (14.0-18.0) L 04/20/18 06:30 Hct 27.8 % (42.0-52.0) L 04/20/18 06:30 MCV 95.2 fl (80.0-105.0) 04/20/18 06:30 MCH 30.1 pg (25.0-35.0) 04/20/18 06:30 MCHC 31.7 g/dl (31.0-37.0) 04/20/18 06:30 RDW 17.5 % (11.5-14.5) H 04/20/18 06:30 Plt Count 133 10^3/uL (120.0-450.0) 04/20/18 06:30 Manual Plt Count 138 K/mm3 (120-450) 04/20/18 06:30 MPV 12.3 fl (7.0-11.0) H 04/20/18 06:30 Gran % 75.5 % (50.0-68.0) H 04/20/18 06:30 Lymph % (Auto) 18.7 % (22.0-35.0) L 04/20/18 06:30 [place] % (Auto) 5.8 % (1.0-6.0) 04/20/18 06:30 Eos % (Auto) 0.0 % (1.5-5.0) L 04/20/18 06:30 Baso % (Auto) 0.0 % (0.0-3.0) 04/20/18 06:30 Gran # 1.94 (1.4-6.5) 04/20/18 06:30 Lymph # (Auto) 0.5 (1.2-3.4) L 04/20/18 06:30 [place] # (Auto) 0.2 (0.1-0.6) 04/20/18 06:30 Eos # (Auto) 0.0 (0.0-0.7) 04/20/18 06:30 Baso # (Auto) 0.00 K/mm3 (0.0-2.0) 04/20/18 06:30 Differential Comment See pathology report 04/15/18 05:00 Platelet Evaluation 37 (NORMAL) 04/17/18 07:00 Retic Count 5.05 % (0.5-1.5) H 04/15/18 04:40 Haptoglobin 117.7 mg/dL (30.0-200.0) 04/15/18 08:15 PT 12.9 SECONDS (9.4-12.5) H 04/15/18 04:40 INR 1.12 04/15/18 04:40 APTT 30.1 Seconds (25.1-36.5) 04/15/18 04:40 Fibrinogen 269 mg/dl (200-400) 04/15/18 04:40 Sodium 134 mmol/L (132-148) 04/20/18 06:30 Potassium 4.2 mmol/L (3.6-5.0) 04/20/18 06:30 Chloride 104 mmol/L (98-107) 04/20/18 06:30 Carbon Dioxide 22 mmol/L (21-33) 04/20/18 06:30 Anion Gap 12 (10-20) 04/20/18 06:30 BUN 23 mg/dL (7-21) H 04/20/18 06:30 Creatinine 0.9 mg/dl (0.8-1.5) 04/20/18 06:30 Est GFR ( Amer) > 60 04/20/18 06:30 Est GFR (Non-Af Amer) > 60 04/20/18 06:30 Random Glucose 267 mg/dL (70-110) H 04/20/18 06:30 Calcium 8.0 mg/dL (8.4-10.5) L 04/20/18 06:30 Phosphorus 3.5 mg/dL (2.5-4.5) 04/16/18 04:15 Magnesium 2.2 mg/dL (1.7-2.2) 04/16/18 04:15 Total Bilirubin 0.3 mg/dL (0.2-1.3) 04/20/18 06:30 AST 24 U/L (17-59) 04/20/18 06:30 ALT 24 U/L (7-56) 04/20/18 06:30 Alkaline Phosphatase 51 U/L (38-126) 04/20/18 06:30 Total Protein 7.7 g/dL (5.8-8.3) 04/20/18 06:30 Albumin 3.2 g/dL (3.0-4.8) 04/20/18 06:30 Globulin 4.5 gm/dL 04/20/18 06:30 Albumin/Globulin Ratio 0.7 (1.1-1.8) L 04/20/18 06:30 Blood Type A POSITIVE 04/15/18 04:40 Antibody Screen Positive 04/15/18 04:40 Antibody Identification WARM AUTO ANTIBODY 04/15/18 04:40 Antigen Identification A1 Antigen - POSITIVE 04/15/18 04:40 SOPHIE, Poly Interpret Positive (NEGATIVE) H 04/15/18 04:40 BBK History Checked Patient has bt 04/15/18 04:40 - Hospital Course Hospital Course: Pt seen and examined. I have reviewed the note of the medical imaging specialist and agree with it. I have discussed the assessment and plan with the resident. I have reviewed the patient's labs and medications. Pt with CLL and low platelets. The CBC showed that the platelets has improved. He was given steroids and has improved. He will f/u with Dr Parsons. He will be given protonix. Pt will continue with Unruly. He will f/u with Dr Leach.
[2018-04-20 07:07] LABS: GRAN # 1.94 (1.4-6.5); GRAN % 75.5 % (50.0-68.0); HEMOGLOBIN 8.8 g/dL (14.0-18.0); LYMPH # 0.5 (1.2-3.4); LYMPH % 18.7 % (22.0-35.0); MEAN CELL VOLUME 95.2 fl (80.0-105.0); MEAN CORPUSCULAR HEMOGLOBIN 30.1 pg (25.0-35.0); MEAN CORPUSCULAR HGB CONC 31.7 g/dl (31.0-37.0); MEAN PLATELET VOLUME 12.3 fl (7.0-11.0); MONO # 0.2 (0.1-0.6); MONO % 5.8 % (1.0-6.0); RBC 2.92 10^6/uL (3.5-6.1); RED CELL DISTRIBUTION WIDTH 17.5 % (11.5-14.5)
[2018-04-20 07:30] LABS: WHITE BLOOD COUNT 2.6 10^3/ul (4.5-11.0)
[2018-04-20 07:35] LABS: ALB/GLOB RATIO 0.7 (1.1-1.8); ALBUMIN 3.2 g/dL (3.0-4.8); ALT/SGPT 24 U/L (7-56); AST/SGOT 24 U/L (17-59); BLOOD UREA NITROGEN 23 mg/dL (7-21); GFR NON-AFRICAN AMERICAN > 60
[2018-04-20] MEDS: diltiaZEM 300 mg/24 Hours CD Cap PO SCH (09:37)
[2018-04-20 09:39] VITALS: BP 146/75; PULSE 62
== END 2018-04-20 12:04 | disposition home or self-care (01) | DRG 813 ==
LOC: ED 04:08 → ERH 05:26 → CCU 07:48 → 3RSO 18:52 → UNDODISIN 04-17 06:00
PROVIDERS: ADMIT Internal Medicine Nephrology; ATTEND Internal Medicine Nephrology
PROC: 30233R1 Transfusion of Nonautologous Platelets into Peripheral Vein, Percutaneous Approach (ICD-10-PCS; principal; 2018-04-15)
PROC: 3E033WL Introduction of Immunosuppressive into Peripheral Vein, Percutaneous (ICD-10-PCS; 2018-04-15)
DX: D69.3 Immune thrombocytopenic purpura (principal); C91.10 Chronic lymphocytic leukemia of B-cell type not having achieved remission; D59.4 Other nonautoimmune hemolytic anemias; D69.41 Evans syndrome; I10 Essential (primary) hypertension; K06.8 Other specified disorders of gingiva and edentulous alveolar ridge; E55.9 Vitamin D deficiency, unspecified